=== PATIENT | female | born 1945 | race Caucasian/White ===

== ENCOUNTER 2021-07-02 19:26 | Inpatient (IN) | payer OTHER, SELFPAY ==
[~2021-07-02] VITALS: Ht 167.6 cm; Wt 76.7 kg
[2021-07-02 19:30] VITALS: BP_SYST 121
--- NOTE | 2021-07-02 19:54 | NUR ---
Placed in room 8 . Placed on cardiac rehabilitation program director, blood pressure machine and pulse oximeter. To gown for exam. Side rails up. Report given to HOANG SANCHEZ.
--- NOTE | 2021-07-02 19:55 | NUR ---
Came in ER per lizbeth brought by ALS paramedics from home this 75 year old female, AAOX4, with O2 at 15L/MIN via non rebreather mask, mild labored breathing, mild tachypneic noted, O2 sat-86-87%, with IV cannula g18 at left wrist on saline lock noted. With chief complaints of SOB and generalized weakness. Known with HTN, Asthma, Covid positive tested 06/27/2021, Hypothyroidism. Vital signs taken and recorded
--- NOTE | 2021-07-02 20:35 | NUR ---
Seen and examined by Dr. Melendrez, ER Attending
--- NOTE | 2021-07-02 20:40 | NUR ---
communications technologist at bedside and blood drawn. Covid charles test done, sent to lab
--- NOTE | 2021-07-02 21:01 | NUR ---
Chest Xray done at bedside
[2021-07-02 21:03] LABS: BASOPHILS % (AUTO) 0.1 % (0.0-2.0); HEMOGLOBIN 11.9 g/dL (12.0-16.0); LYMPHOCYTES # (AUTO) 0.7 K/uL (1.0-5.5); LYMPHOCYTES % (AUTO) 5.4 % (20.5-51.5); MEAN CORPUSCULAR HEMOGLOBIN 28 pg (27-31); MEAN CORPUSCULAR HGB CONC 33 % (32-36); MEAN CORPUSCULAR VOLUME 84 fL (79.0-98.0); MONOCYTES # (AUTO) 0.4 K/uL (0.0-1.0); MONOCYTES % (AUTO) 3.5 % (1.7-9.3); NEUTROPHILS # (AUTO) 11.4 K/uL (1.8-7.7); PLATELET COUNT (AUTO) 211 K/uL (130-430); RED BLOOD CELL COUNT(AUTO) 4.31 MIL/uL (4.2-6.2); RED CELL DISTRIBUTION WIDTH 15.5 % (9.0-15.0); WHITE BLOOD COUNT (AUTO) 12.6 K/uL (4.8-10.8)
--- NOTE | 2021-07-02 21:28 | NUR ---
Patient's son contacted to get the information of medcation and code status,he will call back.
[2021-07-02 21:31] LABS: ANION GAP 7 (5-15); CALCIUM 8.4 mg/dL (8.4-11.0); CHLORIDE 104 mmol/L (98-107); GLUCOSE 152 mg/dL (70-99); POTASSIUM 3.7 mmol/L (3.5-5.1); SODIUM SERUM 139 mmol/L (136-145); UREA NITROGEN, BLOOD 47 mg/dL (8-21)
[2021-07-02 21:37] LABS: ALANINE AMINOTRANSFERASE 26 U/L (12-78); ALBUMIN 2.8 g/dL (3.4-4.8); ASPARTATE AMINOTRANSFERASE 42 U/L (10-37); LACTATE DEHYDROGENASE 514 U/L (81-234); TOTAL BILIRUBIN 0.2 mg/dL (0.0-1.0)
--- NOTE | 2021-07-02 21:45 | NUR ---
Patient's daughter named Dr. Garcia called, medication list given and she wants a FULL CODE status for her mother.
--- NOTE | 2021-07-02 21:45 | NUR ---
Patient's code status is FULL CODE, paperwork completed and placed in chart.
[2021-07-02 21:53] LABS: INR 0.9 (0.8-1.2); PROTHROMBIN TIME 9.6 SECS (9.5-12.5)
[2021-07-02 21:54] LABS: BILIRUBIN,URINE NEGATIVE (NEGATIVE); BLOOD, URINE NEGATIVE (NEGATIVE); CLARITY/URINE SL CLOUDY (CLEAR); COLOR,URINE YELLOW (YELLOW); GLUCOSE,URINE NEGATIVE (NEGATIVE); KETONES,URINE NEGATIVE (NEGATIVE); NITRITE, URINE NEGATIVE (NEGATIVE); PH,URINE 5.5 (5.0-8.0); UROBILINOGEN,URINE 0.2 (0.2-1.0)
[2021-07-02] MEDS ORDERED: ASPI-858 PO (21:59)
[2021-07-02] MEDS ORDERED: HYDR-4038 PO (21:59)
[2021-07-02] MEDS ORDERED: PRO40 PO (21:59)
[2021-07-02] MEDS ORDERED: LEVO100T PO (21:59)
[2021-07-02] MEDS ORDERED: CELE200C PO (21:59)
[2021-07-02] MEDS ORDERED: SIMV40TA2 PO (21:59)
[2021-07-02] MEDS ORDERED: ESCI20TA PO (21:59)
[2021-07-02] MEDS ORDERED: SUCR1TAB78 PO (21:59)
[2021-07-02] MEDS ORDERED: BUDE6HFA INH (21:59)
[2021-07-02] MEDS ORDERED: TEMA30CA5 PO (21:59)
[2021-07-02] MEDS ORDERED: LOSA100T3 PO (21:59)
[2021-07-02] MEDS ORDERED: DILT240C91 PO (21:59)
[2021-07-02] MEDS ORDERED: HYDR25TA4 PO (21:59)
[2021-07-02] MEDS ORDERED: POTA10TA PO (21:59)
[2021-07-02] MEDS ORDERED: MONT10TA33 PO (21:59)
--- NOTE | 2021-07-02 22:00 | NUR ---
Medication reconciliation completed with information provided by comfort Baptiste. Any prior medication reconciliation on file was reviewed and corrected.
[2021-07-02 22:33] LABS: C-REACTIVE PROTEIN QUANT 11.5 mg/dL (0-0.5)
[2021-07-02 22:59] LABS: LEUKOCYTE ESTERASE ,URINE 1+ (NEGATIVE); PROTEIN URINE TRACE (NEGATIVE)
[2021-07-02 23:08] LABS: BACTERIA,URINE MANY /HPF (None Seen); MUCUS,URINE 2+ /LPF (None Seen); RBC,URINE 0-3 /HPF (0-3)
--- NOTE | 2021-07-02 23:17 | NUR ---
Patient will be admitted to care of Dr. Stover as a case of PNEUMONIA, COVID POSITIVE.. Admitted to ICU unit. Will go to room pending. Belongings list completed. Complete and up to date summary report printed. SBAR report to be given at bedside with opportunity for questions.
[2021-07-02] MEDS ORDERED: DEXAMETHASONE SOD PHOSPHATE 4 MG/ML VIAL IVP ONE (23:30)
[2021-07-02] MEDS ORDERED: cefTRIAXone 2 GM VIAL ONE (23:35)
--- NOTE | 2021-07-02 23:37 | NUR ---
Medications given as ordered, health teaching provided and verbalized understanding.
--- NOTE | 2021-07-02 23:40 | NUR ---
MRSA Nares swab done and sent to lab. Apple sauce offered and able to ate 3tbsp, tolerated well
[2021-07-03] VITALS (23 sets, daily range): BP systolic 127–176
--- NOTE | 2021-07-03 00:17 | NUR ---
Voided freely at bedpan, 200ml clear urine, gus-anal care done. Turn to left side lying position.
[2021-07-03] MEDS ORDERED: LORazepam 2 MG/ML VIAL IVP PRN (00:30)
[2021-07-03] MEDS ORDERED: ONDANSETRON HCL 4 MG/2 ML VIAL IVP PRN (00:30)
[2021-07-03] MEDS ORDERED: AZITHROMYCIN 500 MG/VIAL (ZITHROMAX) IV ONE (00:56)
[2021-07-03] MEDS: AZITHROMYCIN 500 MG in NS 250 ML IV SCH (01:16)
--- NOTE | 2021-07-03 01:16 | NUR ---
Fully awake and alert, not in distress noted, medication given as ordered
[2021-07-03] MEDS ORDERED: IPRATROPIUM BROM 0.5 MG/2.5 ML VIAL.NEB (ATROVENT) INH SCH (03:00)
[2021-07-03] MEDS ORDERED: ALBUTEROL SULFATE 0.083% 2.5 MG/3 ML VIAL.NEB INH SCH (03:00)
--- NOTE | 2021-07-03 03:09 | NUR ---
Transfer to ICU 7 via ACLS protocol. Licensed nurse present. IV present no signs or symptoms of infiltration.Endorsed to DANIEL Cameron,Report given
--- NOTE | 2021-07-03 03:20 | NUR ---
Pt transferred to ICU bed 7 via gurney following ACLS protocol. Pt alert and oriented x 3, able to follow commands and make needs known. Pt on 15 L via non rebreather, oxygen saturations in low 80's-70's and tachypneic. Al belongings with pt.
--- NOTE | 2021-07-03 03:48 | NUR ---
PAGED FOR ORDERS SPOKE TO: AUTOMATED EXCHANGE
--- NOTE | 2021-07-03 03:53 | NUR ---
Informed Dr. Santos about pt being tachypneic and oxygen saturations maintaining in 70's and 60's. Received new orders. Will follow through with the orders.
--- NOTE | 2021-07-03 04:05 | NUR ---
Pt placed on 50 L high low NC at 100%, pt's oxygen saturations maintaining above 90%. Pt's RR improved at 19.
--- NOTE | 2021-07-03 04:45 | NUR ---
FERNANDO CATH: # 16 FR Fernando catheter with 10 cc bulb inserted with use of sterile technique. Bulb inflated with 10 cc sterile water. Immediate return of urine noted. Bedside drainage bag placed below level of bladder. Pt tolerated procedure well.
--- NOTE | 2021-07-03 05:27 | NUR ---
PAGED FOR CONSULT DR. ROSS ORDERING PHYSICIAN: REASON FOR CONSULT: PNEUMONIA,COVID DIALED: [phone] SPOKE TO: VENTURA
--- NOTE | 2021-07-03 05:54 | NUR ---
Called scot Lauren to let him know pt is in ICU, updated on pt status and answered all questions.
[2021-07-03] MEDS: LEVOTHYROXINE SODIUM 0.1 MG TABLET PO SCH (06:00)
[2021-07-03] MEDS: DEXAMETHASONE SOD PHOSPHATE 10 MG/ML VIAL IVP SCH (06:00)
[2021-07-03] MEDS: SUCRALFATE 1 GM TABLET PO SCH ×2 (06:00→17:02)
--- NOTE | 2021-07-03 06:26 | NUR ---
God daughter Altagracia called for updates, updates provided and answered all questions.
[2021-07-03 06:41] LABS: BASOPHILS % (AUTO) 0.1 % (0.0-2.0); HEMATOCRIT 33.9 % (36-48); HEMOGLOBIN 11.4 g/dL (12.0-16.0); LYMPHOCYTES # (AUTO) 0.5 K/uL (1.0-5.5); LYMPHOCYTES % (AUTO) 3.8 % (20.5-51.5); MEAN CORPUSCULAR HEMOGLOBIN 28 pg (27-31); MEAN CORPUSCULAR HGB CONC 34 % (32-36); MEAN CORPUSCULAR VOLUME 83 fL (79.0-98.0); MONOCYTES # (AUTO) 0.3 K/uL (0.0-1.0); NEUTROPHILS # (AUTO) 11.9 K/uL (1.8-7.7); NEUTROPHILS % (AUTO) 94.1 % (40.0-70.0); PLATELET COUNT (AUTO) 206 K/uL (130-430); RED BLOOD CELL COUNT(AUTO) 4.09 MIL/uL (4.2-6.2); RED CELL DISTRIBUTION WIDTH 15.4 % (9.0-15.0); WHITE BLOOD COUNT (AUTO) 12.6 K/uL (4.8-10.8)
--- NOTE | 2021-07-03 06:50 | NUR ---
Nutrition Update Landry Scale 15 noted. Pt admitted for COVID, Pneumonia Diet: Cardiac BMI: 27.4 kg/m2 RD to follow per nutrition care standards.
--- NOTE | 2021-07-03 07:00 | NUR ---
Recv report fr Nisha fuller, patient came in for sob and patient tested positive for covid 19, patient also had covid vaccine backk in January. patient is currently on hiflow 50l @ 100%, O2 sat is 95% , patient is aao x 4, telemetry shows sr, i will continue nursing care and interventions.
--- NOTE | 2021-07-03 07:15 | NUR ---
Endorsed SBAR report to oncoming RN for continuity of care.
[2021-07-03 07:18] LABS: ALANINE AMINOTRANSFERASE 26 U/L (12-78); ALBUMIN 2.4 g/dL (3.4-4.8); ANION GAP 5 (5-15); ASPARTATE AMINOTRANSFERASE 47 U/L (10-37); CALCIUM 8.1 mg/dL (8.4-11.0); CHLORIDE 105 mmol/L (98-107); CREATININE 0.95 mg/dL (0.55-1.30); GLUCOSE 157 mg/dL (70-99); PHOSPHORUS 2.5 mg/dL (2.7-4.5); POTASSIUM 3.8 mmol/L (3.5-5.1); SODIUM SERUM 137 mmol/L (136-145); TOTAL BILIRUBIN 0.2 mg/dL (0.0-1.0); UREA NITROGEN, BLOOD 33 mg/dL (8-21)
[2021-07-03] MEDS: ALBUTEROL MDI INHALATION 8 GM INH INH SCH ×4 (07:55→19:40)
[2021-07-03] MEDS ORDERED: ESCITALOPRAM OXALATE 10 MG TABLET PO SCH (09:00)
[2021-07-03] MEDS ORDERED: PANTOPRAZOLE SODIUM 40 MG TAB PO SCH (09:00)
[2021-07-03] MEDS ORDERED: BUDESONIDE/FORMOTEROL 160-4.5 mCg, 6 GM INHALER INH SCH (09:00)
[2021-07-03] MEDS: PANTOPRAZOLE SODIUM 40 MG/VIAL (PROTONIX) IVP SCH (09:38)
[2021-07-03] MEDS: HYDROCHLOROTHIAZIDE 25 MG TABLET (HCTZ) PO SCH ×2 (09:39→20:24)
[2021-07-03] MEDS: POTASSIUM CHLORIDE 10 MEQ TAB.PRT.SR PO SCH ×2 (09:39→20:24)
[2021-07-03] MEDS: CITALOPRAM HYDROBROMIDE 20 MG TABLET PO SCH (09:39)
[2021-07-03] MEDS: ASCORBIC ACID 500 MG TABLET PO SCH ×2 (09:39→20:24)
[2021-07-03] MEDS: SIMVASTATIN 40 MG TABLET PO SCH (09:39)
[2021-07-03] MEDS: CHOLECALCIFEROL (VITAMIN D3) 5,000 UNIT TABLET PO SCH (09:40)
[2021-07-03] MEDS: ENOXAPARIN SODIUM 40 MG/0.4 ML SYRINGE SUBCUT SCH (09:43)
[2021-07-03] MEDS: DILTIAZEM HCL 240 MG CAP.SR.24H PO SCH (09:44)
[2021-07-03] MEDS: ASPIRIN 325 MG TABLET PO SCH (09:44)
[2021-07-03] MEDS: LOSARTAN POTASSIUM 50 MG TABLET (COZAAR) PO SCH (09:45)
[2021-07-03] MEDS: CELECOXIB 200 MG CAPSULE PO SCH ×2 (09:48→20:24)
[2021-07-03] MEDS: hydrALAZINE HCL 25 MG TABLET PO SCH ×2 (09:51→20:25)
--- NOTE | 2021-07-03 10:00 | NUR ---
Patient complaints of a headache, per records patient is alllerigc to Tylenol, discussed with dr bowser who is at the bedside, we re verified with patient about tylenol, she said its ok for her to take the tylenol.
--- NOTE | 2021-07-03 12:00 | NUR ---
Patient is eating lunch, given her the tylnold 650 mg, will closely monitor patient for any allergic reaction.
[2021-07-03] MEDS: ACETAMINOPHEN 325 MG TABLET PO PRN (12:57)
--- NOTE | 2021-07-03 14:00 | NUR ---
Patient is sleeping comfortably after tylenol, o2 sat is at 96%, vitals sign stable i will continue to monitor the patient.
[2021-07-03] MEDS: MONTELUKAST 10 MG TABLET PO SCH (17:02)
--- NOTE | 2021-07-03 19:30 | NUR ---
Received SBAR report from off coming RN for continuity of care. Pt laying in bed awake and alert. Pt on 50L high flow NC at 100%with non rebreather.
[2021-07-03] MEDS: TEMAZEPAM 15 MG CAPSULE PO SCH (20:24)
--- NOTE | 2021-07-03 20:30 | NUR ---
Pt laying in bed, a/o x 3. Pt c/o 06/26 headache, will administer PRN pain medication per JAN. Pt on 50 L high flow NC at 100% with non rebreather. Pt becomes SOB with exertion. Repositioned pt and assisted her to turn on her side, pt stated difficulty with proning d/t becoming SOB with exertion and desaturating. Escoto catheter in place and draining to gravity, yellow urine output noted. Call light within reach, bed locked and in lowest position, safety precautions in place.
--- NOTE | 2021-07-03 21:40 | NUR ---
Pt's oxygen saturations dropping into the 60's and 70's, sustaining in the 70s. Pt's work of breathing increasing RR in 30s. Pt becoming lethargic.
--- NOTE | 2021-07-03 21:55 | NUR ---
Informed Dr. Santos about pt's oxygen saturations dropping to the 70's and 60's and sustaining as well as an increase in work of breathing. Received new orders, will follow through.
--- NOTE | 2021-07-03 22:30 | NUR ---
Pt placed on BiPAP, pt tolerating well. Oxygen saturations maintained above 90%. Work of breathing improving.
[2021-07-03] MEDS: cefTRIAXone 1 GM IVPB PREMIX 50 ML IV SCH (23:59)
[2021-07-04] VITALS (23 sets, daily range): BP systolic 120–161
[2021-07-04] MEDS: ALBUTEROL MDI INHALATION 8 GM INH INH SCH ×4 (00:52→18:00)
[2021-07-04] MEDS: AZITHROMYCIN 500 MG in NS 250 ML IV SCH (01:54)
[2021-07-04] MEDS: DEXAMETHASONE SOD PHOSPHATE 10 MG/ML VIAL IVP SCH (05:37)
[2021-07-04] MEDS: SUCRALFATE 1 GM TABLET PO SCH ×2 (05:37→17:24)
[2021-07-04] MEDS: LEVOTHYROXINE SODIUM 0.1 MG TABLET PO SCH (05:37)
[2021-07-04 06:58] LABS: BASOPHILS % (AUTO) 0.1 % (0.0-2.0); HEMATOCRIT 35.1 % (36-48); HEMOGLOBIN 11.9 g/dL (12.0-16.0); LYMPHOCYTES # (AUTO) 0.9 K/uL (1.0-5.5); LYMPHOCYTES % (AUTO) 10.3 % (20.5-51.5); MEAN CORPUSCULAR HEMOGLOBIN 28 pg (27-31); MEAN CORPUSCULAR HGB CONC 34 % (32-36); MEAN CORPUSCULAR VOLUME 83 fL (79.0-98.0); MONOCYTES # (AUTO) 0.5 K/uL (0.0-1.0); MONOCYTES % (AUTO) 5.5 % (1.7-9.3); NEUTROPHILS # (AUTO) 7.3 K/uL (1.8-7.7); NEUTROPHILS % (AUTO) 84.1 % (40.0-70.0); PLATELET COUNT (AUTO) 217 K/uL (130-430); RED BLOOD CELL COUNT(AUTO) 4.24 MIL/uL (4.2-6.2); RED CELL DISTRIBUTION WIDTH 15.4 % (9.0-15.0); WHITE BLOOD COUNT (AUTO) 8.7 K/uL (4.8-10.8)
--- NOTE | 2021-07-04 07:00 | NUR ---
Recv report fr Cameron rn, patient had desaturated last night about 2200. patient is placed on bipap 18/8, rate 18, fo2 100%, patient is comfortable current o2 sat is between 91% to 93%, telemetry shows sinus rhythm, npo for now, f/c to gravity skin warm to touch, i will continue nursing care and interventions.
--- NOTE | 2021-07-04 07:30 | NUR ---
Endorsed SBAR report to oncoming RN for continuity of care. Pt laying in bed with eyes closed. Pt on BiPAP with oxygen saturations maintained above 90%.
[2021-07-04 07:31] LABS: INR 0.9 (0.8-1.2); PROTHROMBIN TIME 9.5 SECS (9.5-12.5)
[2021-07-04 07:41] LABS: ANION GAP 11 (5-15); CALCIUM 8.2 mg/dL (8.4-11.0); CHLORIDE 104 mmol/L (98-107); CREATININE 1.04 mg/dL (0.55-1.30); GLUCOSE 114 mg/dL (70-99); SODIUM SERUM 142 mmol/L (136-145); UREA NITROGEN, BLOOD 33 mg/dL (8-21)
[2021-07-04 07:45] LABS: ALANINE AMINOTRANSFERASE 27 U/L (12-78); ALBUMIN 2.6 g/dL (3.4-4.8); ASPARTATE AMINOTRANSFERASE 41 U/L (10-37); C-REACTIVE PROTEIN QUANT 6.4 mg/dL (0-0.5); LACTATE DEHYDROGENASE 617 U/L (81-234); TOTAL BILIRUBIN 0.2 mg/dL (0.0-1.0)
--- NOTE | 2021-07-04 08:30 | NUR ---
Dr perea came , he said he knows the patient for a long time, but he is not consulted. he went to say hi to the patient, patient is aware.
[2021-07-04 08:40] LABS: ERYTHROCYTE SEDIMENTATION RATE 41 MM/HR (0-20)
[2021-07-04] MEDS: CELECOXIB 200 MG CAPSULE PO SCH ×2 (09:00→21:58)
[2021-07-04] MEDS: POTASSIUM CHLORIDE 10 MEQ TAB.PRT.SR PO SCH ×2 (09:00→21:58)
[2021-07-04] MEDS: CITALOPRAM HYDROBROMIDE 20 MG TABLET PO SCH (09:00)
--- NOTE | 2021-07-04 09:00 | NUR ---
Spoke with savannah Santos an order for PICC line insertion, patient is able to sign the consent.
--- NOTE | 2021-07-04 09:10 | NUR ---
Page out to Dr. Stover, waiting for call back.
[2021-07-04] MEDS: PANTOPRAZOLE SODIUM 40 MG/VIAL (PROTONIX) IVP SCH (11:01)
[2021-07-04] MEDS: ENOXAPARIN SODIUM 40 MG/0.4 ML SYRINGE SUBCUT SCH (11:02)
--- NOTE | 2021-07-04 13:29 | NUR ---
rt notes 1329 Titrated FIO2 to 90%, saturation 98%. will continue to monitor pt.
[2021-07-04] MEDS: DILTIAZEM HCL 240 MG CAP.SR.24H PO SCH (15:29)
[2021-07-04] MEDS: HYDROCHLOROTHIAZIDE 25 MG TABLET (HCTZ) PO SCH ×2 (15:30→21:58)
[2021-07-04] MEDS: ACETAMINOPHEN 325 MG TABLET PO PRN ×2 (15:30→21:35)
[2021-07-04] MEDS: ASPIRIN 325 MG TABLET PO SCH (15:34)
[2021-07-04] MEDS: LOSARTAN POTASSIUM 50 MG TABLET (COZAAR) PO SCH (15:34)
[2021-07-04] MEDS: SIMVASTATIN 40 MG TABLET PO SCH (15:35)
[2021-07-04] MEDS: hydrALAZINE HCL 25 MG TABLET PO SCH ×2 (15:36→21:57)
[2021-07-04] MEDS: CHOLECALCIFEROL (VITAMIN D3) 5,000 UNIT TABLET PO SCH (15:36)
[2021-07-04] MEDS: ASCORBIC ACID 500 MG TABLET PO SCH ×2 (15:38→21:59)
--- NOTE | 2021-07-04 16:30 | NUR ---
Dr. Stover called jory updated him about the patient, he spoke with the family, the family wants to keep him one more day for more families, dr stover said to keep bp up until tomorrow, so patient is full code.
[2021-07-04] MEDS: MONTELUKAST 10 MG TABLET PO SCH (17:26)
--- NOTE | 2021-07-04 19:32 | NUR ---
Received SBAR report from off coming RN for continuity of care. Pt laying in bed with eyes closed, pt on BiPAP at 80% with oxygen saturations maintained above 90%. Call light within reach.
--- NOTE | 2021-07-04 21:00 | NUR ---
Pt laying in bed, a/o x 3. Pt c/o 06/26 headache, will administer PRN pain medication per JAN. Pt on BiPAP at 80%, oxygen saturations maintained above 90%. Pt breathing even and unlabored. Repositioned pt and assisted her to turn on her side Escoto catheter in place and draining to gravity, dark yellow urine output noted. Call light within reach, bed locked and in lowest position, safety precautions in place
[2021-07-04] MEDS: TEMAZEPAM 15 MG CAPSULE PO SCH (21:59)
[2021-07-04] MEDS: cefTRIAXone 1 GM IVPB PREMIX 50 ML IV SCH (23:30)
[2021-07-05] VITALS (23 sets, daily range): BP systolic 93–161
[2021-07-05] MEDS: ALBUTEROL MDI INHALATION 8 GM INH INH SCH ×3 (01:46→20:59)
[2021-07-05] MEDS: AZITHROMYCIN 500 MG in NS 250 ML IV SCH (01:46)
--- NOTE | 2021-07-05 04:40 | NUR ---
Daughter Jesica called for updates, updates provided and answered all questions.
[2021-07-05] MEDS: DEXAMETHASONE SOD PHOSPHATE 10 MG/ML VIAL IVP SCH (05:58)
[2021-07-05] MEDS: LEVOTHYROXINE SODIUM 0.1 MG TABLET PO SCH (05:59)
[2021-07-05] MEDS: SUCRALFATE 1 GM TABLET PO SCH ×2 (05:59→17:53)
[2021-07-05 06:40] LABS: ALANINE AMINOTRANSFERASE 23 U/L (12-78); ALBUMIN 2.3 g/dL (3.4-4.8); ANION GAP 9 (5-15); ASPARTATE AMINOTRANSFERASE 29 U/L (10-37); C-REACTIVE PROTEIN QUANT 2.1 mg/dL (0-0.5); CHLORIDE 106 mmol/L (98-107); CREATININE 1.05 mg/dL (0.55-1.30); GLUCOSE 116 mg/dL (70-99); POTASSIUM 4.1 mmol/L (3.5-5.1); SODIUM SERUM 141 mmol/L (136-145); TOTAL BILIRUBIN 0.3 mg/dL (0.0-1.0); UREA NITROGEN, BLOOD 39 mg/dL (8-21)
[2021-07-05 07:01] LABS: BASOPHILS % (AUTO) 0.1 % (0.0-2.0); HEMATOCRIT 33.7 % (36-48); HEMOGLOBIN 11.5 g/dL (12.0-16.0); LYMPHOCYTES # (AUTO) 0.8 K/uL (1.0-5.5); LYMPHOCYTES % (AUTO) 8.3 % (20.5-51.5); MEAN CORPUSCULAR HEMOGLOBIN 28 pg (27-31); MEAN CORPUSCULAR HGB CONC 34 % (32-36); MEAN CORPUSCULAR VOLUME 83 fL (79.0-98.0); MONOCYTES # (AUTO) 0.7 K/uL (0.0-1.0); MONOCYTES % (AUTO) 6.9 % (1.7-9.3); NEUTROPHILS # (AUTO) 8.6 K/uL (1.8-7.7); NEUTROPHILS % (AUTO) 84.7 % (40.0-70.0); PLATELET COUNT (AUTO) 231 K/uL (130-430); RED BLOOD CELL COUNT(AUTO) 4.05 MIL/uL (4.2-6.2); RED CELL DISTRIBUTION WIDTH 15.2 % (9.0-15.0); WHITE BLOOD COUNT (AUTO) 10.1 K/uL (4.8-10.8)
--- NOTE | 2021-07-05 07:10 | NUR ---
Opening note: Received SBAR report from night nurse. Assumed all cares. Pt in bed with eyes closed. Pt on BiPAP, maintaining oxygen saturation above 90%.
--- NOTE | 2021-07-05 07:30 | NUR ---
Endorsed SBAR report to oncoming RN for continuity of care.
[2021-07-05 08:21] LABS: ERYTHROCYTE SEDIMENTATION RATE 24 MM/HR (0-20)
[2021-07-05] MEDS: CELECOXIB 200 MG CAPSULE PO SCH ×2 (08:24→21:20)
[2021-07-05] MEDS: SIMVASTATIN 40 MG TABLET PO SCH (08:26)
[2021-07-05] MEDS: POTASSIUM CHLORIDE 10 MEQ TAB.PRT.SR PO SCH ×2 (08:26→21:20)
[2021-07-05] MEDS: DILTIAZEM HCL 240 MG CAP.SR.24H PO SCH (08:26)
[2021-07-05] MEDS: HYDROCHLOROTHIAZIDE 25 MG TABLET (HCTZ) PO SCH ×2 (08:27→21:28)
[2021-07-05] MEDS: ASCORBIC ACID 500 MG TABLET PO SCH ×2 (08:27→21:20)
[2021-07-05] MEDS: CITALOPRAM HYDROBROMIDE 20 MG TABLET PO SCH (08:27)
[2021-07-05] MEDS: CHOLECALCIFEROL (VITAMIN D3) 5,000 UNIT TABLET PO SCH (08:28)
[2021-07-05] MEDS: PANTOPRAZOLE SODIUM 40 MG/VIAL (PROTONIX) IVP SCH (08:28)
[2021-07-05] MEDS: LOSARTAN POTASSIUM 50 MG TABLET (COZAAR) PO SCH (08:28)
--- NOTE | 2021-07-05 08:30 | NUR ---
RT placed pt on High flow O2 60LPM FiO2 80%. Pt drinking fluids and eating breakfast, maintaining oxygen saturation above 90%.
--- NOTE | 2021-07-05 08:34 | NUR ---
rt notes 0733 Pt tolerating bipap (18/8 r18 100% fio2) 0826 Pt placed on HFNC 60L/ 100% fio2, and try if pt tolerates also for breakfast. Pt saturating 92%, will continue to monitor pt. Re-educ pt to keep breathing through nose. DANIEL escudero.
[2021-07-05] MEDS: ASPIRIN 325 MG TABLET PO SCH (08:36)
[2021-07-05] MEDS: ENOXAPARIN SODIUM 40 MG/0.4 ML SYRINGE SUBCUT SCH (08:36)
[2021-07-05] MEDS: hydrALAZINE HCL 25 MG TABLET PO SCH ×2 (08:37→21:28)
--- NOTE | 2021-07-05 09:44 | NUR ---
rt notes 0944 Pt still on HFNC 60L/ 80% fio2 + 15L NRB. Pt saturating 94%. will continue to monitor pt.
--- NOTE | 2021-07-05 12:30 | NUR ---
Put pt on BiPAP due to low saturation on High flow. Oxygen saturation now maintained above 90%.
--- NOTE | 2021-07-05 12:48 | NUR ---
RT NOTES 1248 Pt switched back to BIPAP (same settings) by DANIEL Wilson, pt desaturated on HFNC w/ NRB. will continue to monitor pt.
--- NOTE | 2021-07-05 14:30 | NUR ---
RT replaced BiPAP with high flow oxygen at 60LPM FiO2 80%. Pt maintaining saturation above 90%. Pt eating lunch.
--- NOTE | 2021-07-05 17:05 | NUR ---
Dietitian Recommendations * Recommend cardiac, mechanical soft, soft, finely chopped diet w/ Ensure Enlive TID (ONS provides 1050 kcal/day, 60 gm protein/day) * Encourage increase PO intakes LP, RD Please refer to Nutrition Assessment for details. Addendum: 07/05/21 at [address] Amended: Links added.
[2021-07-05] MEDS: MONTELUKAST 10 MG TABLET PO SCH (17:53)
[2021-07-05] MEDS: ACETAMINOPHEN 325 MG TABLET PO PRN (18:13)
--- NOTE | 2021-07-05 19:19 | NUR ---
SBAR report given and all cares endorsed to oncoming nurse.
--- NOTE | 2021-07-05 20:10 | NUR ---
Initial Note Received SBAR report from dayshift RN. Received resting in bed with eyes closed, easily aroused. No c/o pain or discomfort. On highflow O2 50 % 100% FiO2. Afebrile. Escoto catheter draining yellow urine. Repositioned in bed. Will continue to monitor.
[2021-07-05] MEDS: TEMAZEPAM 15 MG CAPSULE PO SCH (21:21)
--- NOTE | 2021-07-05 21:38 | NUR ---
Due PO medications administered. Tolerated well.
--- NOTE | 2021-07-05 22:23 | NUR ---
O2 sat 77% on High Flow O2. No respiratory distress noted, easily aroused. RT placed on BIPAP. O2 sat 93-94%.
[2021-07-06] VITALS (25 sets, daily range): BP systolic 109–162
[2021-07-06] MEDS: cefTRIAXone 1 GM IVPB PREMIX 50 ML IV SCH ×2 (00:04→23:00)
[2021-07-06] MEDS: ALBUTEROL MDI INHALATION 8 GM INH INH SCH ×4 (01:40→20:06)
[2021-07-06] MEDS ORDERED: DOXYCYCLINE HYCLATE 100 MG VIAL IV ONE (03:53)
[2021-07-06] MEDS: DOXYCYCLINE HYCLATE 100 MG in D5W 100 ML IV SCH ×2 (04:28→21:30)
[2021-07-06] MEDS: DEXAMETHASONE SOD PHOSPHATE 10 MG/ML VIAL IVP SCH (05:04)
[2021-07-06] MEDS: LEVOTHYROXINE SODIUM 0.1 MG TABLET PO SCH (05:28)
[2021-07-06] MEDS: ACETAMINOPHEN 325 MG TABLET PO PRN ×4 (05:28→22:45)
[2021-07-06] MEDS ORDERED: ACETAMINOPHEN 325 MG TABLET ONE (05:30)
--- NOTE | 2021-07-06 05:38 | NUR ---
C/o back pain rated 3/10. Tylenol given as ordered.
[2021-07-06] MEDS: SUCRALFATE 1 GM TABLET PO SCH ×2 (06:13→17:30)
[2021-07-06 06:41] LABS: BASOPHILS % (AUTO) 0.1 % (0.0-2.0); HEMATOCRIT 36.1 % (36-48); HEMOGLOBIN 12.1 g/dL (12.0-16.0); LYMPHOCYTES # (AUTO) 0.9 K/uL (1.0-5.5); LYMPHOCYTES % (AUTO) 6.7 % (20.5-51.5); MEAN CORPUSCULAR HEMOGLOBIN 27 pg (27-31); MEAN CORPUSCULAR HGB CONC 33 % (32-36); MEAN CORPUSCULAR VOLUME 82 fL (79.0-98.0); MONOCYTES # (AUTO) 0.9 K/uL (0.0-1.0); MONOCYTES % (AUTO) 6.8 % (1.7-9.3); NEUTROPHILS % (AUTO) 86.4 % (40.0-70.0); PLATELET COUNT (AUTO) 218 K/uL (130-430); WHITE BLOOD COUNT (AUTO) 13.9 K/uL (4.8-10.8)
[2021-07-06 06:47] LABS: ANION GAP 8 (5-15); CALCIUM 8.3 mg/dL (8.4-11.0); CHLORIDE 101 mmol/L (98-107); CREATININE 0.86 mg/dL (0.55-1.30); GLUCOSE 129 mg/dL (70-99); POTASSIUM 4.3 mmol/L (3.5-5.1); SODIUM SERUM 137 mmol/L (136-145); UREA NITROGEN, BLOOD 32 mg/dL (8-21)
[2021-07-06 06:56] LABS: ALANINE AMINOTRANSFERASE 23 U/L (12-78); ALBUMIN 2.6 g/dL (3.4-4.8); ASPARTATE AMINOTRANSFERASE 26 U/L (10-37); LACTATE DEHYDROGENASE 565 U/L (81-234); TOTAL BILIRUBIN 0.3 mg/dL (0.0-1.0)
--- NOTE | 2021-07-06 06:59 | NUR ---
Partial bed bath given. Turned and repositioned. Tolerated well.
--- NOTE | 2021-07-06 07:15 | NUR ---
Received SBAR report from night nurse. All cares assumed. Pt resting in bed with eyes closed. BiPAP 18/8, 20, 50%.
--- NOTE | 2021-07-06 07:21 | NUR ---
Closing note Resting quietly, all needs attended to. SBAR report given to oncoming shift RN.
[2021-07-06] MEDS: PANTOPRAZOLE SODIUM 40 MG/VIAL (PROTONIX) IVP SCH (08:09)
[2021-07-06] MEDS: HYDROCHLOROTHIAZIDE 25 MG TABLET (HCTZ) PO SCH ×2 (08:09→21:27)
[2021-07-06] MEDS: DILTIAZEM HCL 240 MG CAP.SR.24H PO SCH (08:10)
[2021-07-06] MEDS: hydrALAZINE HCL 25 MG TABLET PO SCH ×2 (08:10→21:26)
[2021-07-06] MEDS: SIMVASTATIN 40 MG TABLET PO SCH (08:11)
[2021-07-06] MEDS: ASPIRIN 325 MG TABLET PO SCH (08:11)
[2021-07-06] MEDS: POTASSIUM CHLORIDE 10 MEQ TAB.PRT.SR PO SCH ×2 (08:11→21:33)
[2021-07-06] MEDS: CITALOPRAM HYDROBROMIDE 20 MG TABLET PO SCH (08:11)
[2021-07-06] MEDS: ASCORBIC ACID 500 MG TABLET PO SCH ×2 (08:15→21:27)
[2021-07-06] MEDS: LOSARTAN POTASSIUM 50 MG TABLET (COZAAR) PO SCH (08:15)
[2021-07-06] MEDS: CHOLECALCIFEROL (VITAMIN D3) 5,000 UNIT TABLET PO SCH (08:15)
[2021-07-06] MEDS: ENOXAPARIN SODIUM 40 MG/0.4 ML SYRINGE SUBCUT SCH (08:18)
[2021-07-06] MEDS: CELECOXIB 200 MG CAPSULE PO SCH ×2 (08:19→21:27)
[2021-07-06 08:51] LABS: ERYTHROCYTE SEDIMENTATION RATE 13 MM/HR (0-20)
--- NOTE | 2021-07-06 10:12 | NUR ---
RT NOTES 0810 Currently pt on BIPAP 0835 switched pt on Vapotherm 40L/ 100% FIO2 for breakfast. pt saturation 96%, pt tolerating well. will continue to monitor pt. DANIEL escudero.
--- NOTE | 2021-07-06 12:50 | NUR ---
RT NOTES 1250 Pt currently on Vapotherm + 15L NRB, pt saturating 94%, will continue to monitor pt.
--- NOTE | 2021-07-06 15:00 | NUR ---
CHG bath given, bed linens changed. Pt assisted with turning, maintained saturations during bed change.
--- NOTE | 2021-07-06 15:40 | NUR ---
RT NOTES 1540 Titrated fio2 to 90%, saturation 96%. will continue to monitor pt. DANIEL Pantoja aware of changes.
--- NOTE | 2021-07-06 15:45 | NUR ---
RT titrated high flow oxygen from 100% to 90%. Saturation maintained above 90%. Will continue to monitor.
[2021-07-06] MEDS: MONTELUKAST 10 MG TABLET PO SCH (17:30)
--- NOTE | 2021-07-06 19:07 | NUR ---
SBAR report given to oncoming nurse. Pt resting in bed.
--- NOTE | 2021-07-06 21:00 | NUR ---
PATIENT ACCEPTED AND ASSESS DONE , PATIENT AWAKE AND RESPOND TO ALL COMMANDS ON HIFLOW WITH 40 LITER ,90% SAT 93% AND STABLE WILL CONSUMED PO MEDS WELL BT SELF AND MEAL , PATIENT , IS ABLE TO SOME THING BY SELF MERCED PAIN OR SOB , HAS AN FERNANDO AND DOING WELL WITH URINE OUT PUT, STABLE NOTICE THE LEFT SALINE LOCK, DRSG. NEED CHANGE HAD OLD DRY BLOOD ON SKIN , PATIENT HAS AN MIDLINE WILL REMOVED THE SALINE LOCKM ON THE LEFT HAND, STABLE
[2021-07-06] MEDS: TEMAZEPAM 15 MG CAPSULE PO SCH (21:29)
[2021-07-07] VITALS (24 sets, daily range): BP systolic 103–168
[2021-07-07] MEDS: ALBUTEROL MDI INHALATION 8 GM INH INH SCH ×4 (01:27→19:40)
[2021-07-07] MEDS: ACETAMINOPHEN 325 MG TABLET PO PRN ×2 (04:34→21:35)
[2021-07-07] MEDS: LEVOTHYROXINE SODIUM 0.1 MG TABLET PO SCH (05:52)
[2021-07-07] MEDS: DEXAMETHASONE SOD PHOSPHATE 10 MG/ML VIAL IVP SCH (05:52)
[2021-07-07] MEDS: SUCRALFATE 1 GM TABLET PO SCH ×2 (05:52→17:44)
[2021-07-07 07:09] LABS: HEMATOCRIT 38.2 % (36-48); HEMOGLOBIN 12.9 g/dL (12.0-16.0); LYMPHOCYTES # (AUTO) 0.9 K/uL (1.0-5.5); LYMPHOCYTES % (AUTO) 4.9 % (20.5-51.5); MEAN CORPUSCULAR HEMOGLOBIN 28 pg (27-31); MEAN CORPUSCULAR HGB CONC 34 % (32-36); MEAN CORPUSCULAR VOLUME 82 fL (79.0-98.0); MONOCYTES # (AUTO) 1.2 K/uL (0.0-1.0); MONOCYTES % (AUTO) 6.4 % (1.7-9.3); NEUTROPHILS # (AUTO) 16.7 K/uL (1.8-7.7); PLATELET COUNT (AUTO) 234 K/uL (130-430); RED BLOOD CELL COUNT(AUTO) 4.66 MIL/uL (4.2-6.2); RED CELL DISTRIBUTION WIDTH 15.3 % (9.0-15.0); WHITE BLOOD COUNT (AUTO) 18.8 K/uL (4.8-10.8)
[2021-07-07 07:14] LABS: ALANINE AMINOTRANSFERASE 23 U/L (12-78); ALBUMIN 2.7 g/dL (3.4-4.8); ANION GAP 7 (5-15); ASPARTATE AMINOTRANSFERASE 24 U/L (10-37); C-REACTIVE PROTEIN QUANT 0.3 mg/dL (0-0.5); CALCIUM 8.7 mg/dL (8.4-11.0); CHLORIDE 99 mmol/L (98-107); CREATININE 0.87 mg/dL (0.55-1.30); GLUCOSE 115 mg/dL (70-99); POTASSIUM 3.8 mmol/L (3.5-5.1); SODIUM SERUM 134 mmol/L (136-145); TOTAL BILIRUBIN 0.4 mg/dL (0.0-1.0); UREA NITROGEN, BLOOD 36 mg/dL (8-21)
--- NOTE | 2021-07-07 07:15 | NUR ---
received report from endorsing shift production associate RN, patient is lying in bed.on high flow 40L, 100%. Fio2 is between 89-91%, patient is educated to turn side to side.
--- NOTE | 2021-07-07 07:40 | NUR ---
bedfast tray was given, T=98.2, provided bedside care.
--- NOTE | 2021-07-07 08:00 | NUR ---
MD Santos is at bedside assessing the patient.
--- NOTE | 2021-07-07 08:05 | NUR ---
RT NOTES Dr Santos witnessed pt would desat without NRM. stated to make sure pt. always has mask on with HFNC. Rn Wilton made aware.
[2021-07-07] MEDS: DOXYCYCLINE HYCLATE 100 MG in D5W 100 ML IV SCH ×2 (09:09→21:30)
[2021-07-07] MEDS: CITALOPRAM HYDROBROMIDE 20 MG TABLET PO SCH (09:10)
[2021-07-07] MEDS: POTASSIUM CHLORIDE 10 MEQ TAB.PRT.SR PO SCH ×2 (09:10→21:31)
[2021-07-07] MEDS: ASCORBIC ACID 500 MG TABLET PO SCH ×2 (09:10→21:31)
[2021-07-07] MEDS: SIMVASTATIN 40 MG TABLET PO SCH (09:10)
[2021-07-07] MEDS: DILTIAZEM HCL 240 MG CAP.SR.24H PO SCH (09:11)
[2021-07-07] MEDS: ASPIRIN 325 MG TABLET PO SCH (09:11)
[2021-07-07] MEDS: LOSARTAN POTASSIUM 50 MG TABLET (COZAAR) PO SCH (09:12)
[2021-07-07] MEDS: hydrALAZINE HCL 25 MG TABLET PO SCH ×2 (09:12→21:34)
[2021-07-07] MEDS: CHOLECALCIFEROL (VITAMIN D3) 5,000 UNIT TABLET PO SCH (09:13)
[2021-07-07] MEDS: PANTOPRAZOLE SODIUM 40 MG/VIAL (PROTONIX) IVP SCH (09:14)
[2021-07-07] MEDS: CELECOXIB 200 MG CAPSULE PO SCH ×2 (09:19→21:35)
[2021-07-07] MEDS: HYDROCHLOROTHIAZIDE 25 MG TABLET (HCTZ) PO SCH ×2 (09:24→21:36)
[2021-07-07] MEDS: ENOXAPARIN SODIUM 40 MG/0.4 ML SYRINGE SUBCUT SCH (09:26)
[2021-07-07 09:27] LABS: NEUTROPHILS % (AUTO) 88.7 % (40.0-70.0)
[2021-07-07 09:32] LABS: ERYTHROCYTE SEDIMENTATION RATE 6 MM/HR (0-20)
--- NOTE | 2021-07-07 12:30 | NUR ---
LUNCH TRAY GIVEN TO PATIENT, PROVIDED ORAL AND BEDSIDE CARE.
--- NOTE | 2021-07-07 14:00 | NUR ---
PATIENT DAUGHTERS VISITED, PROVIDED PATIENT STATUS.
[2021-07-07] MEDS: MONTELUKAST 10 MG TABLET PO SCH (17:44)
--- NOTE | 2021-07-07 19:24 | NUR ---
ENDORSED PATIENT TO NET WASHER RN FOR CONTINUATION OF CARE.
--- NOTE | 2021-07-07 21:00 | NUR ---
PATIENT WAS ACCEPTED AND ASSESS DONE , PATIENT C/O OF BEING COLD HAS MANY BLANKET ON WITH TOWEL WRAP AROUND HER HEAD STAT SHE FEELS BETTER ASK IF HAD AN WINTER CAP WEAR ON HERE HEAD WILL HELP DENISESTABLE PAIN
[2021-07-07] MEDS: TEMAZEPAM 15 MG CAPSULE PO SCH (21:35)
[2021-07-08] VITALS (24 sets, daily range): BP systolic 106–157
--- NOTE | 2021-07-08 01:00 | NUR ---
PATIENT WAS AWAKE AND HAD REMOVED ALL OF THE LINEN OFF HER AND SOCK WELL ASK WHY AFTER BEING SO COLD STAT BY HER WAS UNABLE TO STAT WHY AND SEEMED CONFUSED AND DISORIENTATED LINEN WAS APPLIED BACK ON THE BED , RESTLESS AQND AGITATED ATIVAN 1 MG IV WAS GIVEN TO HELP CALM HER DOWN SHE WAS ALSO PLACE ON THE BIPAP MACHINE , RESTE WELL THRU OUT THE NITE , STABLE
[2021-07-08] MEDS: ALBUTEROL MDI INHALATION 8 GM INH INH SCH ×5 (01:20→23:51)
[2021-07-08] MEDS: cefTRIAXone 1 GM IVPB PREMIX 50 ML IV SCH ×2 (01:27→23:50)
--- NOTE | 2021-07-08 04:00 | NUR ---
PATIENT WANTED THE BIPAP OFF, PATIENT WOULD DO BETTER IF REMAIN ON THE BIPAP THIS WAS EXPLAIN TO THE PATIENT BUT DID NOT WANT TO STAY ON THE BIPAP RESP THERAPIST WAS CALLED AND HAD DECIED TO PLACE THE PATIENT BACK ON HIFLOW NC NON REBREATHER MASK AT 100% STABLE CONDITION PATIENT WAS ABLE TO SLEEP AND REST DURING THE NITE , STABLE
--- NOTE | 2021-07-08 05:00 | NUR ---
DR QUINTANA WAS HERE TO VISITED WITH THE PATIENT , CHECK ON THE MEDICATION LAST DOSE OF REMDESEVER 100 MG , PATIENT HAD COMPLETED THE SERIES OF MEDICATION, STABLE WILL CONTINUED WITH PLAN OF CARE , STABLE
[2021-07-08] MEDS: SUCRALFATE 1 GM TABLET PO SCH ×2 (05:48→18:53)
[2021-07-08] MEDS: LEVOTHYROXINE SODIUM 0.1 MG TABLET PO SCH (05:48)
[2021-07-08] MEDS: DEXAMETHASONE SOD PHOSPHATE 10 MG/ML VIAL IVP SCH (05:49)
[2021-07-08 06:49] LABS: BASOPHILS % (AUTO) 0.1 % (0.0-2.0); EOSINOPHILS % (AUTO) 0.1 % (0.0-4.0); HEMATOCRIT 35.3 % (36-48); LYMPHOCYTES # (AUTO) 1.2 K/uL (1.0-5.5); LYMPHOCYTES % (AUTO) 6.9 % (20.5-51.5); MEAN CORPUSCULAR HEMOGLOBIN 28 pg (27-31); MEAN CORPUSCULAR HGB CONC 34 % (32-36); MEAN CORPUSCULAR VOLUME 81 fL (79.0-98.0); MONOCYTES % (AUTO) 5.2 % (1.7-9.3); NEUTROPHILS % (AUTO) 87.7 % (40.0-70.0); PLATELET COUNT (AUTO) 178 K/uL (130-430); RED BLOOD CELL COUNT(AUTO) 4.36 MIL/uL (4.2-6.2); RED CELL DISTRIBUTION WIDTH 14.8 % (9.0-15.0); WHITE BLOOD COUNT (AUTO) 18.2 K/uL (4.8-10.8)
[2021-07-08 07:09] LABS: ANION GAP 8 (5-15); C-REACTIVE PROTEIN QUANT 0.6 mg/dL (0-0.5); CALCIUM 8.5 mg/dL (8.4-11.0); CHLORIDE 97 mmol/L (98-107); CREATININE 0.69 mg/dL (0.55-1.30); GLUCOSE 100 mg/dL (70-99); POTASSIUM 4.2 mmol/L (3.5-5.1); SODIUM SERUM 133 mmol/L (136-145); UREA NITROGEN, BLOOD 29 mg/dL (8-21)
[2021-07-08 08:30] LABS: ERYTHROCYTE SEDIMENTATION RATE 6 MM/HR (0-20)
[2021-07-08] MEDS: PANTOPRAZOLE SODIUM 40 MG/VIAL (PROTONIX) IVP SCH (08:59)
[2021-07-08] MEDS: hydrALAZINE HCL 25 MG TABLET PO SCH ×2 (09:02→20:25)
[2021-07-08] MEDS: DILTIAZEM HCL 240 MG CAP.SR.24H PO SCH (09:04)
[2021-07-08] MEDS: CHOLECALCIFEROL (VITAMIN D3) 5,000 UNIT TABLET PO SCH (09:05)
[2021-07-08] MEDS: CITALOPRAM HYDROBROMIDE 20 MG TABLET PO SCH (09:05)
[2021-07-08] MEDS: ASPIRIN 325 MG TABLET PO SCH (09:05)
[2021-07-08] MEDS: LOSARTAN POTASSIUM 50 MG TABLET (COZAAR) PO SCH (09:07)
[2021-07-08] MEDS: POTASSIUM CHLORIDE 10 MEQ TAB.PRT.SR PO SCH ×2 (09:08→20:24)
[2021-07-08] MEDS: ASCORBIC ACID 500 MG TABLET PO SCH ×2 (09:08→20:25)
[2021-07-08] MEDS: HYDROCHLOROTHIAZIDE 25 MG TABLET (HCTZ) PO SCH ×2 (09:08→20:25)
[2021-07-08] MEDS: SIMVASTATIN 40 MG TABLET PO SCH (09:10)
[2021-07-08] MEDS: ENOXAPARIN SODIUM 40 MG/0.4 ML SYRINGE SUBCUT SCH (09:12)
[2021-07-08] MEDS: CELECOXIB 200 MG CAPSULE PO SCH ×2 (09:18→20:25)
[2021-07-08] MEDS: DOXYCYCLINE HYCLATE 100 MG in D5W 100 ML IV SCH ×2 (09:20→20:24)
--- NOTE | 2021-07-08 15:35 | NUR ---
RT NOTES Pt saturation 79% while sleeping. Placed on 100% nrm with hfnc, pt was reeducated on deep breathing. Sat. improved to 97%.
--- NOTE | 2021-07-08 18:08 | NUR ---
Nutrition F/U RD reviewed pt's current EMR record including diet Hx, physician notes, nursing notes, pertinent labs/meds/procedures, care trends, and care activity. Admission Dx: COVID, pneumonia PMH: asthma, hypothyroidism, endometrial CA s/p hysterectomy in the past per physician notes Pt was also found w/ sepsis per physician notes SARS-CoV-2 Ag (Rapid) Positive 07/02 Current Diet Order/Nutrition Support: Cardiac, mechanical soft, soft, finely chopped diet w/ Ensure Enlive TID x2 days Subjective Info: RD bedside visit deferred d/t high RD load. Per EMR review, pt is on HFNC O2; last dose of remdesivir today; PO intake average of 26% x6 meals; no BM noted since 07/03; Landry scale: 15, no PIs noted. Current diet is appropriate, however, pt needs ample encouragement at meal times. Pertinent Medications: zinc sulfate, VIT C, VIT D3, protonix IV, lovenox, hydrodiuril, synthroid Pertinent Labs: BUN 29 H, BG 100 H, ALP 243 H, CRP 0.6 H, ALB 2.7 L, WBC 18.2 H Height (Feet) 5 feet Height (Inches) 6.00 inches Weight (Pounds) 169 pounds Weight (Calculated Kilograms) 76.201125 kilograms Patient Weight 76.657 kg Body Mass Index 27.27 kg/m2 %IBW 130 [place]/Adjusted Body Weight IBW: 130#/59 kg. Adj IBW (obesity): 140#/64 kg Estimated Energy Expenditure (kcals/day) 7392-7126 kcal/day (30-35 kcal/kg Adj IBW d/t sepsis) Estimated Protein Required (g/day) 77-96 gm/day (1.2-1.5 gm/kg Adj IBW d/t sepsis) Estimated Fluid Required (l/day) 1.9-2.3 L/day (25-30 ml/kg CBW d/t geriatric maintenance) Problem/Etiology/Signs/Symptoms Increased nutritional needs related to metabolic demands as evidenced by estimated nutritional requirements for acute state. *ongoing Expected Outcomes/Goals - Monitor appetite and PO intakes w/ goal of pt meeting at least 80% of estimated nutritional needs, labs trending WNL, normal GI function, and skin integrity/wt maintenance Dietitian Recommendations * Recommend continuing cardiac, mechanical soft, soft, finely chopped diet w/ Ensure Enlive TID (ONS provides 1050 kcal/day, 60 gm protein/day) * Encourage increase PO intakes Follow Up High Risk: F/U in 2-3 days
--- NOTE | 2021-07-08 18:12 | NUR ---
Dietitian Recommendations * Recommend continuing cardiac, mechanical soft, soft, finely chopped diet w/ Ensure Enlive TID (ONS provides 1050 kcal/day, 60 gm protein/day) * Encourage increase PO intakes LP, RD Please refer to Nutrition F/U for details.
[2021-07-08] MEDS: MONTELUKAST 10 MG TABLET PO SCH (18:53)
[2021-07-08] MEDS: TEMAZEPAM 15 MG CAPSULE PO SCH (20:26)
--- NOTE | 2021-07-08 20:40 | NUR ---
S/B DR PATEL SPOKE WITH PATIENT AND EDUCATION GIVEN DR. PATEL CALLED PATIENTS DAUGHTER SHERLYN AND SPOKE TO HER OVER THE PHONE ALMOST 20 MINS CONVERSATION, PATIENT AND DAUGHTER DONT WANT BIPAP AND WANTED TO WEAN HFNC TO NRB IN AM IF PATIENT TOLERATES. DISCUSSION OF AMA WITH PATIENT EXPLAINED BY DR PATEL TO PATIENT AND ORDERED PT/OT IN AM.
[2021-07-08] MEDS: ACETAMINOPHEN 325 MG TABLET PO PRN (20:59)
[2021-07-09] VITALS (24 sets, daily range): BP systolic 103–146
[2021-07-09] MEDS: DEXAMETHASONE SOD PHOSPHATE 10 MG/ML VIAL IVP SCH (05:44)
[2021-07-09] MEDS: LEVOTHYROXINE SODIUM 0.1 MG TABLET PO SCH (05:44)
[2021-07-09] MEDS: ALBUTEROL MDI INHALATION 8 GM INH INH SCH ×2 (05:45→13:19)
[2021-07-09 06:55] LABS: BASOPHILS # (AUTO) 0.3 K/uL (0.0-0.2); BASOPHILS % (AUTO) 1.5 % (0.0-2.0); EOSINOPHILS # (AUTO) 0.2 K/uL (0.0-0.4); EOSINOPHILS % (AUTO) 1.2 % (0.0-4.0); HEMATOCRIT 33.7 % (36-48); HEMOGLOBIN 11.7 g/dL (12.0-16.0); LYMPHOCYTES # (AUTO) 1.2 K/uL (1.0-5.5); LYMPHOCYTES % (AUTO) 7.2 % (20.5-51.5); MEAN CORPUSCULAR HEMOGLOBIN 28 pg (27-31); MEAN CORPUSCULAR HGB CONC 35 % (32-36); MEAN CORPUSCULAR VOLUME 81 fL (79.0-98.0); MONOCYTES # (AUTO) 0.6 K/uL (0.0-1.0); MONOCYTES % (AUTO) 3.7 % (1.7-9.3); NEUTROPHILS % (AUTO) 86.4 % (40.0-70.0); PLATELET COUNT (AUTO) 210 K/uL (130-430); RED BLOOD CELL COUNT(AUTO) 4.16 MIL/uL (4.2-6.2); WHITE BLOOD COUNT (AUTO) 17.3 K/uL (4.8-10.8)
[2021-07-09] MEDS: SUCRALFATE 1 GM TABLET PO SCH ×2 (07:00→17:02)
--- NOTE | 2021-07-09 07:00 | NUR ---
Recv report fr Mari fuller, patient was stable last night, the daughter wants the patient to go on non re breather only today am, this was discussed with Dr Santos, but Re anderson said she tried the patient on non rebreather only, patient stauration went down to 71%, patient remains aao x 4, normal sinus rhythm, and will continue nursing care and interventions.
[2021-07-09 08:04] LABS: ALANINE AMINOTRANSFERASE 20 U/L (12-78); ALBUMIN 2.4 g/dL (3.4-4.8); ANION GAP 9 (5-15); ASPARTATE AMINOTRANSFERASE 24 U/L (10-37); C-REACTIVE PROTEIN QUANT 1.2 mg/dL (0-0.5); CALCIUM 8.6 mg/dL (8.4-11.0); CHLORIDE 93 mmol/L (98-107); CREATININE 0.67 mg/dL (0.55-1.30); GLUCOSE 89 mg/dL (70-99); PHOSPHORUS 3.7 mg/dL (2.7-4.5); POTASSIUM 3.9 mmol/L (3.5-5.1); SODIUM SERUM 129 mmol/L (136-145); TOTAL BILIRUBIN 0.6 mg/dL (0.0-1.0); UREA NITROGEN, BLOOD 28 mg/dL (8-21)
--- NOTE | 2021-07-09 08:05 | NUR ---
RT NOTES Tried weaning pt off of HFNC and on NRM 100%, pt immediately desaturated to low 70s despite deep breathing. Pt. back on HFNC and NRM, improvement noted.
--- NOTE | 2021-07-09 08:14 | NUR ---
RT NOTES Per DANIEL Lott, dr Duong changed PEEP to 7 Addendum: 07/09/21 at 0820 by Re Richards RT wrong pt
[2021-07-09] MEDS: DOXYCYCLINE HYCLATE 100 MG in D5W 100 ML IV SCH ×3 (09:00→21:18)
[2021-07-09] MEDS: DILTIAZEM HCL 240 MG CAP.SR.24H PO SCH (09:11)
[2021-07-09] MEDS: hydrALAZINE HCL 25 MG TABLET PO SCH ×2 (09:12→21:20)
[2021-07-09] MEDS: LOSARTAN POTASSIUM 50 MG TABLET (COZAAR) PO SCH (09:12)
[2021-07-09] MEDS: SIMVASTATIN 40 MG TABLET PO SCH (09:13)
[2021-07-09] MEDS: CITALOPRAM HYDROBROMIDE 20 MG TABLET PO SCH (09:13)
[2021-07-09] MEDS: ASCORBIC ACID 500 MG TABLET PO SCH ×2 (09:14→21:19)
[2021-07-09] MEDS: CHOLECALCIFEROL (VITAMIN D3) 5,000 UNIT TABLET PO SCH (09:14)
[2021-07-09] MEDS: ASPIRIN 325 MG TABLET PO SCH (09:14)
[2021-07-09] MEDS: ENOXAPARIN SODIUM 40 MG/0.4 ML SYRINGE SUBCUT SCH (09:14)
[2021-07-09] MEDS: PANTOPRAZOLE SODIUM 40 MG/VIAL (PROTONIX) IVP SCH (09:15)
[2021-07-09] MEDS: POTASSIUM CHLORIDE 10 MEQ TAB.PRT.SR PO SCH ×2 (09:17→21:20)
[2021-07-09] MEDS: CELECOXIB 200 MG CAPSULE PO SCH ×2 (09:17→21:22)
[2021-07-09] MEDS: HYDROCHLOROTHIAZIDE 25 MG TABLET (HCTZ) PO SCH ×2 (09:17→21:20)
--- NOTE | 2021-07-09 10:00 | NUR ---
Patient is able to eat 50% of breakfast, tried patient on non rebreather only, patient's o2 sat is at 84% to 86% only, kept patient back on Hi flow nc, and 100% non rebreather mask.
[2021-07-09 10:52] LABS: ERYTHROCYTE SEDIMENTATION RATE 2 MM/HR (0-20)
[2021-07-09] MEDS: ACETAMINOPHEN 325 MG TABLET PO PRN ×2 (11:11→21:18)
--- NOTE | 2021-07-09 12:00 | NUR ---
Wpoke with Natalie patient's daughter, jory given her an updated regarding pt's condition the she didn't tolerate just the non rebreather mask, she was concerned of patient being too long in the icu, she suggested if we can transfer patient to telemetry, jory told her due to current oxygenation, patient can not go to tele yet. gianni is currently on 30L @ 100% hi flow and 100% non re breather mask.
--- NOTE | 2021-07-09 14:00 | NUR ---
Candace anderson tried once more to just keep patient on Non Rebreather mask, we both observe the patient closely for a while, patients best o2 sat is 84-87%, we placed patient back on hi flow and nrm. will continue to monitor the patient.
--- NOTE | 2021-07-09 16:00 | NUR ---
Patient taken off the non rebreather mask, patients o2 sat is better just on Hi flow 30L @ 90%, pateint o2 sat with hi flow maldonado is between 94 to 97%, left the non rebreather at the bedside, instructed pt is she gets short of breath to put in the non rebreather mask.
[2021-07-09] MEDS: MONTELUKAST 10 MG TABLET PO SCH (17:02)
--- NOTE | 2021-07-09 18:00 | NUR ---
All nursing care and issues all have been addressed, patient is better with hi flow only, i will endorsed care to third shift lieutenant nurse.
--- NOTE | 2021-07-09 20:07 | NUR ---
Patient awake alert verbally Responsive / indicative chest movement symmetrical PT on High Flow 02 @ 90 % 02 SAT 93 %
[2021-07-09] MEDS: TEMAZEPAM 15 MG CAPSULE PO SCH (21:19)
--- NOTE | 2021-07-09 21:56 | NUR ---
Patient awake on & off assist encourage position change off loading with pillows , comfort measures implemented 02 SAT 89 %
--- NOTE | 2021-07-09 22:24 | NUR ---
Escoto Catheter patent free flow of clear yellow urine noted to BSDB / .
--- NOTE | 2021-07-09 22:45 | NUR ---
TYLENOL 650 MG po administer for acute pain comfort measures implemented continue to monitor .
[2021-07-09] MEDS: cefTRIAXone 1 GM IVPB PREMIX 50 ML IV SCH (23:40)
[2021-07-10] VITALS (24 sets, daily range): BP systolic 98–134
--- NOTE | 2021-07-10 02:48 | NUR ---
DR Danielle TOBIN here to see patient .
--- NOTE | 2021-07-10 02:59 | NUR ---
02 SAT low 82 - 84 @ 90 % per RT patient placed on 100 % , 02 SAT 95 % continue to monitor .
[2021-07-10] MEDS: DEXAMETHASONE SOD PHOSPHATE 10 MG/ML VIAL IVP SCH (06:08)
[2021-07-10] MEDS: SUCRALFATE 1 GM TABLET PO SCH ×2 (06:08→17:33)
[2021-07-10] MEDS: LEVOTHYROXINE SODIUM 0.1 MG TABLET PO SCH (06:08)
[2021-07-10 06:44] LABS: BASOPHILS % (AUTO) 0.1 % (0.0-2.0); EOSINOPHILS # (AUTO) 0.2 K/uL (0.0-0.4); EOSINOPHILS % (AUTO) 1.3 % (0.0-4.0); HEMOGLOBIN 11.5 g/dL (12.0-16.0); LYMPHOCYTES # (AUTO) 0.9 K/uL (1.0-5.5); LYMPHOCYTES % (AUTO) 5.1 % (20.5-51.5); MEAN CORPUSCULAR HEMOGLOBIN 27 pg (27-31); MEAN CORPUSCULAR HGB CONC 34 % (32-36); MEAN CORPUSCULAR VOLUME 81 fL (79.0-98.0); MONOCYTES # (AUTO) 0.5 K/uL (0.0-1.0); MONOCYTES % (AUTO) 2.9 % (1.7-9.3); NEUTROPHILS # (AUTO) 16.2 K/uL (1.8-7.7); NEUTROPHILS % (AUTO) 90.6 % (40.0-70.0); PLATELET COUNT (AUTO) 158 K/uL (130-430); RED BLOOD CELL COUNT(AUTO) 4.23 MIL/uL (4.2-6.2); RED CELL DISTRIBUTION WIDTH 14.9 % (9.0-15.0); WHITE BLOOD COUNT (AUTO) 17.9 K/uL (4.8-10.8)
[2021-07-10 08:12] LABS: ANION GAP 9 (5-15); CALCIUM 8.3 mg/dL (8.4-11.0); CHLORIDE 94 mmol/L (98-107); CREATININE 0.68 mg/dL (0.55-1.30); GLUCOSE 77 mg/dL (70-99); POTASSIUM 3.8 mmol/L (3.5-5.1); SODIUM SERUM 129 mmol/L (136-145); UREA NITROGEN, BLOOD 28 mg/dL (8-21)
[2021-07-10] MEDS: PANTOPRAZOLE SODIUM 40 MG/VIAL (PROTONIX) IVP SCH (08:20)
[2021-07-10] MEDS: CHOLECALCIFEROL (VITAMIN D3) 5,000 UNIT TABLET PO SCH (08:23)
[2021-07-10] MEDS: DILTIAZEM HCL 240 MG CAP.SR.24H PO SCH (08:23)
[2021-07-10] MEDS: POTASSIUM CHLORIDE 10 MEQ TAB.PRT.SR PO SCH ×2 (08:23→21:11)
[2021-07-10] MEDS: SIMVASTATIN 40 MG TABLET PO SCH (08:23)
[2021-07-10] MEDS: ASCORBIC ACID 500 MG TABLET PO SCH ×2 (08:23→21:12)
[2021-07-10] MEDS: ASPIRIN 325 MG TABLET PO SCH (08:23)
[2021-07-10] MEDS: HYDROCHLOROTHIAZIDE 25 MG TABLET (HCTZ) PO SCH ×2 (08:24→21:12)
[2021-07-10 08:25] LABS: ALANINE AMINOTRANSFERASE 19 U/L (12-78); ALBUMIN 2.3 g/dL (3.4-4.8); ASPARTATE AMINOTRANSFERASE 22 U/L (10-37); C-REACTIVE PROTEIN QUANT 1.1 mg/dL (0-0.5); LACTATE DEHYDROGENASE 556 U/L (81-234); TOTAL BILIRUBIN 0.6 mg/dL (0.0-1.0)
[2021-07-10] MEDS: CITALOPRAM HYDROBROMIDE 20 MG TABLET PO SCH (08:25)
[2021-07-10] MEDS: LOSARTAN POTASSIUM 50 MG TABLET (COZAAR) PO SCH (08:25)
[2021-07-10] MEDS: hydrALAZINE HCL 25 MG TABLET PO SCH ×2 (08:27→21:11)
[2021-07-10] MEDS: ENOXAPARIN SODIUM 40 MG/0.4 ML SYRINGE SUBCUT SCH (08:28)
--- NOTE | 2021-07-10 08:30 | NUR ---
Activity Per bedside RN, pt sat over the side of the bed for approx 10 minutes on 100% high flow and tolerated activity without increasing SOB. Pt chooses to take off NRM and use it as she feels she needs it.
[2021-07-10] MEDS: CELECOXIB 200 MG CAPSULE PO SCH ×2 (08:32→21:11)
[2021-07-10] MEDS: DOXYCYCLINE HYCLATE 100 MG in D5W 100 ML IV SCH ×2 (08:34→21:07)
[2021-07-10 09:17] LABS: ERYTHROCYTE SEDIMENTATION RATE 8 MM/HR (0-20)
[2021-07-10] MEDS: ALBUTEROL MDI INHALATION 8 GM INH INH SCH ×2 (10:09→14:32)
--- NOTE | 2021-07-10 10:52 | NUR ---
Dr. Santos called in to order a D-Dimer test. Test ordered.
--- NOTE | 2021-07-10 12:13 | NUR ---
Dr Santos called in for D Dimer results. orders received to notify regarding full dose lovenox.
[2021-07-10] MEDS: ACETAMINOPHEN 325 MG TABLET PO PRN ×2 (12:47→21:14)
--- NOTE | 2021-07-10 14:36 | NUR ---
1355 TITRATED FI02 TO .75 WITH LITER FLOW 30. HR88 RR26 SAT 91%.DR ORDER TO KEEP SAT 88% AND UP. DANIEL ARCHER. Addendum: 07/10/21 at 1438 by Ashley Pritchett RT Amended: Links added.
--- NOTE | 2021-07-10 15:30 | NUR ---
Physical Therapy PT came to work with the patient while on 02 75%. Pt sat over side of bed and took a couple of steps in the room. 02 sats 87% during activity. Pt did not have increasing SOB. remains on 75% 02 high flow after activity.
[2021-07-10] MEDS: MONTELUKAST 10 MG TABLET PO SCH (17:33)
--- NOTE | 2021-07-10 18:51 | NUR ---
MD KHADAR ROSS [phone] SPOKE WITH SUSAN
--- NOTE | 2021-07-10 19:00 | NUR ---
Spoke with Dr. Cisneros and requested that he look at the pts DVT coverage to see if the lovenox should be increased to full dosage.
--- NOTE | 2021-07-10 19:30 | NUR ---
Opening Note Received report from AM nurse using SBAR approach.
--- NOTE | 2021-07-10 19:30 | NUR ---
Opening Note Received report from AM nurse using SBAR approach.
--- NOTE | 2021-07-10 19:52 | NUR ---
PATIENT STOOD UP TODAY AND TOOK ABOUT ONE TO TWO STEPS WITH THE ASSISTANCE OF THE PHYSICAL THERAPIST. TOLERATED WELL. ALL HER LINENS AND GOWN WERE CHANGED. PATIENT STATED THAT SHE FELT BETTER. SATURATING BETWEEN 86% TO 97% ON 75% FIO2 @ 30 LITERS. REMAINS AFEBRILE. REPORT GIVEN TO THE FINANCIAL COORDINATOR RN THAT WILL CONTINUE WITH THE CARE OF THIS PATIENT. ALL STATED PROTOCOLS REMAIN EFFECTIVE.
--- NOTE | 2021-07-10 21:00 | NUR ---
Daughter Natalie and Dr. Santos spoke on the phone and agreed of patient's o2 saturation is okay in the 85% or higher. patient is asymptomatic if she sats around that number. RT said she is also aware
[2021-07-10] MEDS: TEMAZEPAM 15 MG CAPSULE PO SCH (21:12)
[2021-07-11] VITALS (15 sets, daily range): BP systolic 99–150
--- NOTE | 2021-07-11 01:00 | NUR ---
Patient complaining that room is cold. Provided 2 extra blankets for patient and a blanket over her head.
--- NOTE | 2021-07-11 02:00 | NUR ---
BIPAP patient is desaturating in the 79's/80's. Patient refused bipap.
--- NOTE | 2021-07-11 02:05 | NUR ---
RT RT changed settings to fio2 100 and 40L
[2021-07-11] MEDS: ENOXAPARIN SODIUM 40 MG/0.4 ML SYRINGE SUBCUT SCH ×2 (03:00→21:45)
--- NOTE | 2021-07-11 03:30 | NUR ---
Patient is saturating 86%. She has on her non rebreather mask.
--- NOTE | 2021-07-11 05:00 | NUR ---
Family Family called and asked for update. Provided update for daughterMonique
--- NOTE | 2021-07-11 06:00 | NUR ---
patient is saying that the room is cold. Engineering came by and said they are uanble to fix it.
[2021-07-11] MEDS: LEVOTHYROXINE SODIUM 0.1 MG TABLET PO SCH (06:13)
[2021-07-11] MEDS: SUCRALFATE 1 GM TABLET PO SCH ×2 (06:13→18:17)
[2021-07-11] MEDS: DEXAMETHASONE SOD PHOSPHATE 10 MG/ML VIAL IVP SCH (06:13)
[2021-07-11 06:27] LABS: BASOPHILS % (AUTO) 0.1 % (0.0-2.0); EOSINOPHILS # (AUTO) 0.4 K/uL (0.0-0.4); EOSINOPHILS % (AUTO) 2.1 % (0.0-4.0); HEMATOCRIT 34.4 % (36-48); HEMOGLOBIN 11.7 g/dL (12.0-16.0); LYMPHOCYTES # (AUTO) 0.8 K/uL (1.0-5.5); LYMPHOCYTES % (AUTO) 4.3 % (20.5-51.5); MEAN CORPUSCULAR HEMOGLOBIN 28 pg (27-31); MEAN CORPUSCULAR HGB CONC 34 % (32-36); MEAN CORPUSCULAR VOLUME 81 fL (79.0-98.0); MONOCYTES # (AUTO) 0.6 K/uL (0.0-1.0); NEUTROPHILS # (AUTO) 17.6 K/uL (1.8-7.7); NEUTROPHILS % (AUTO) 90.5 % (40.0-70.0); PLATELET COUNT (AUTO) 193 K/uL (130-430); RED BLOOD CELL COUNT(AUTO) 4.25 MIL/uL (4.2-6.2); RED CELL DISTRIBUTION WIDTH 14.7 % (9.0-15.0); WHITE BLOOD COUNT (AUTO) 19.5 K/uL (4.8-10.8)
[2021-07-11 06:43] LABS: ANION GAP 8 (5-15); CALCIUM 8.5 mg/dL (8.4-11.0); CHLORIDE 95 mmol/L (98-107); CREATININE 0.55 mg/dL (0.55-1.30); GLUCOSE 83 mg/dL (70-99); POTASSIUM 3.4 mmol/L (3.5-5.1); SODIUM SERUM 131 mmol/L (136-145); UREA NITROGEN, BLOOD 26 mg/dL (8-21)
--- NOTE | 2021-07-11 07:00 | NUR ---
Recv report fr Rhonda fuller, per Toshia patieint is desaturating down to 74% last night, due to patient refusing the Non rebreather mask, currently patients' o2 sat is 84* to 85% , patient's assessment patient refuses to put bp cuff on, refuses to put on the non re breather mask on. She is complaining of room being cold, patient has multiple blankets on, i will continue nursing care and interventions.
[2021-07-11] MEDS: ALBUTEROL MDI INHALATION 8 GM INH INH SCH ×3 (07:55→19:45)
--- NOTE | 2021-07-11 08:00 | NUR ---
Patient refuses to eat.
[2021-07-11 08:09] LABS: ERYTHROCYTE SEDIMENTATION RATE 9 MM/HR (0-20)
--- NOTE | 2021-07-11 08:40 | NUR ---
Patient's god daughter Altagracia called this morining, and said that, she has been talking with Natalie patients daughter all morning, and they said that patient needs to be out if ICU, and complaining that patient is not properly being taken care of... I ve told her that patient saturation is only 85% , even though she does not present any short of breath, o2 sat of 84% to 85% is still not acceptable,, i will get Dr Santos involved.
[2021-07-11 09:17] LABS: C-REACTIVE PROTEIN QUANT 5.8 mg/dL (0-0.5)
[2021-07-11] MEDS: DOXYCYCLINE HYCLATE 100 MG in D5W 100 ML IV SCH ×2 (09:45→21:42)
[2021-07-11] MEDS: PANTOPRAZOLE SODIUM 40 MG/VIAL (PROTONIX) IVP SCH (09:45)
[2021-07-11] MEDS: ASCORBIC ACID 500 MG TABLET PO SCH ×2 (09:46→21:43)
[2021-07-11] MEDS: DILTIAZEM HCL 240 MG CAP.SR.24H PO SCH (09:46)
[2021-07-11] MEDS: POTASSIUM CHLORIDE 10 MEQ TAB.PRT.SR PO SCH ×2 (09:47→21:43)
[2021-07-11] MEDS: LOSARTAN POTASSIUM 50 MG TABLET (COZAAR) PO SCH (09:47)
[2021-07-11] MEDS: CITALOPRAM HYDROBROMIDE 20 MG TABLET PO SCH (09:47)
[2021-07-11] MEDS: hydrALAZINE HCL 25 MG TABLET PO SCH ×2 (09:47→21:42)
[2021-07-11] MEDS: HYDROCHLOROTHIAZIDE 25 MG TABLET (HCTZ) PO SCH ×2 (09:48→21:43)
[2021-07-11] MEDS: SIMVASTATIN 40 MG TABLET PO SCH (09:50)
[2021-07-11] MEDS: CHOLECALCIFEROL (VITAMIN D3) 5,000 UNIT TABLET PO SCH (09:51)
[2021-07-11] MEDS: CELECOXIB 200 MG CAPSULE PO SCH ×2 (09:53→21:42)
[2021-07-11] MEDS: ASPIRIN 325 MG TABLET PO SCH (09:54)
--- NOTE | 2021-07-11 10:00 | NUR ---
Patients scot Lauren called and spoke with Adali flores rn, he was upset and mad, he said that he is a plant inspector "i will monique you guys" , Adali told him not to call and threaten people her in the hospital, we are trying to take care of the patient, patient still on 100% fio2 on a HI Flow. i will cotninue to monitor the patient.
--- NOTE | 2021-07-11 13:21 | NUR ---
Nutrition F/U RD reviewed pt's current EMR record including diet Hx, physician notes, nursing notes, pertinent labs/meds/procedures, care trends, and care activity. Admission Dx: COVID, pneumonia PMH: asthma, hypothyroidism, endometrial CA s/p hysterectomy in the past per physician notes Pt was also found w/ sepsis per physician notes 07/11 MD notes: Leukocytosis SARS-CoV-2 Ag (Rapid) Positive 07/02 Current Diet Order/Nutrition Support: Cardiac, mechanical soft, soft, finely chopped diet w/ Ensure Enlive TID x5 days Subjective Info: Pt remains in ICU, on COVID Isolation and RD bedside visit was deferred. dietetics teacher reports that pt might be transferred today per family's request. Per EMR, the pt is on HFNC, Landry scale: 19, no skin issues/edema noted. PO intake records show pt w/ poor PO intake. Maximum encouragement during meals is warranted. Pertinent Medications: zinc sulfate, VIT C, VIT D3, protonix IV, lovenox, hydrodiuril, synthroid, Decadron, Temazepam. Pertinent Labs: 07/11 WBC 19.5 H, Na 131L, K 3.4L, BG 83WNL, BUN 26H, Cre 0.55WNL. Height: 5 feet, 6.00 inches Weight: 169 pounds/ 76.451342 kilograms (07/05)--stable Body Mass Index: 27.27 kg/m2 [place]/Adjusted Body Weight: 130#/59 kg. Adj IBW (obesity): 140#/64 kg Estimated Energy Expenditure (kcals/day) 2570-1904 kcal/day (30-35 kcal/kg Adj IBW d/t sepsis) Estimated Protein Required (g/day) 77-96 gm/day (1.2-1.5 gm/kg Adj IBW d/t sepsis) Estimated Fluid Required (l/day) 1.9-2.3 L/day (25-30 ml/kg CBW d/t geriatric maintenance) Problem/Etiology/Signs/Symptoms Increased nutritional needs related to metabolic demands as evidenced by estimated nutritional requirements for acute state. *ongoing Expected Outcomes/Goals - Monitor appetite and PO intakes w/ goal of pt meeting at least 80% of estimated nutritional needs, labs trending WNL, normal GI function, and skin integrity/wt maintenance Dietitian Recommendations * Recommend continuing cardiac, mechanical soft, soft, finely chopped diet w/ Ensure Enlive TID (ONS provides 1050 kcal/day, 60 gm protein/day) * Maximum encouragement q meal. Follow Up High Risk: F/U in 2-3 days
--- NOTE | 2021-07-11 13:26 | NUR ---
Dietitian Recommendations * Recommend continuing cardiac, mechanical soft, soft, finely chopped diet w/ Ensure Enlive TID (ONS provides 1050 kcal/day, 60 gm protein/day) * Maximum encouragement q meal. Please see Nutrition F/U note for details. KATIUSKA, RD
--- NOTE | 2021-07-11 14:25 | NUR ---
RT NOTES Titrated FIO2 to 0.90.
[2021-07-11] MEDS ORDERED: DOCUSATE SODIUM 100 MG CAPSULE PO PRN (17:30)
--- NOTE | 2021-07-11 18:00 | NUR ---
Titrated hi flow fio2 down to 85%.... also sat patient up on the side of the chair.
[2021-07-11] MEDS ORDERED: POTASSIUM CHLORIDE 20 MEQ TAB.PRT.SR PO ONE (18:06)
[2021-07-11] MEDS: MONTELUKAST 10 MG TABLET PO SCH (18:17)
[2021-07-11] MEDS: ACETAMINOPHEN 325 MG TABLET PO PRN (18:20)
--- NOTE | 2021-07-11 18:30 | NUR ---
Nilesh family updated all day long, Dr Santos came to see the patient, he is ok with o2 sat from 86 % and up.
--- NOTE | 2021-07-11 19:30 | NUR ---
Opening Note Received report from AM nurse using SBAR approach.
--- NOTE | 2021-07-11 20:15 | NUR ---
Patient is unhappy because of how cold the room was. Gave patient 2 new blankets. patient stated she wants to just sleep.
[2021-07-11] MEDS: TEMAZEPAM 15 MG CAPSULE PO SCH (21:43)
[2021-07-11] MEDS: DOCUSATE SODIUM 100 MG CAPSULE PO SCH (21:43)
[2021-07-12] VITALS (15 sets, daily range): BP systolic 120–140
[2021-07-12] MEDS: ALBUTEROL MDI INHALATION 8 GM INH INH SCH ×4 (00:39→19:45)
--- NOTE | 2021-07-12 02:00 | NUR ---
patient is resting well. No complaints. patient is happy about the pictures on the wall.
[2021-07-12] MEDS: ACETAMINOPHEN 325 MG TABLET PO PRN ×2 (05:00→12:46)
[2021-07-12] MEDS: DEXAMETHASONE SOD PHOSPHATE 10 MG/ML VIAL IVP SCH (06:10)
[2021-07-12 06:17] LABS: BASOPHILS % (AUTO) 0.2 % (0.0-2.0); EOSINOPHILS % (AUTO) 0.2 % (0.0-4.0); HEMATOCRIT 33.5 % (36-48); HEMOGLOBIN 11.3 g/dL (12.0-16.0); LYMPHOCYTES # (AUTO) 0.6 K/uL (1.0-5.5); LYMPHOCYTES % (AUTO) 4.2 % (20.5-51.5); MEAN CORPUSCULAR HEMOGLOBIN 28 pg (27-31); MEAN CORPUSCULAR HGB CONC 34 % (32-36); MEAN CORPUSCULAR VOLUME 82 fL (79.0-98.0); MONOCYTES # (AUTO) 0.7 K/uL (0.0-1.0); MONOCYTES % (AUTO) 5.1 % (1.7-9.3); NEUTROPHILS # (AUTO) 13.2 K/uL (1.8-7.7); NEUTROPHILS % (AUTO) 90.3 % (40.0-70.0); PLATELET COUNT (AUTO) 163 K/uL (130-430); RED BLOOD CELL COUNT(AUTO) 4.09 MIL/uL (4.2-6.2); RED CELL DISTRIBUTION WIDTH 14.5 % (9.0-15.0); WHITE BLOOD COUNT (AUTO) 14.6 K/uL (4.8-10.8)
[2021-07-12] MEDS: LEVOTHYROXINE SODIUM 0.1 MG TABLET PO SCH (06:21)
[2021-07-12] MEDS: SUCRALFATE 1 GM TABLET PO SCH ×2 (06:22→17:30)
[2021-07-12 06:44] LABS: ANION GAP 5 (5-15); CALCIUM 8.5 mg/dL (8.4-11.0); CHLORIDE 95 mmol/L (98-107); CREATININE 0.72 mg/dL (0.55-1.30); GLUCOSE 98 mg/dL (70-99); POTASSIUM 3.8 mmol/L (3.5-5.1); SODIUM SERUM 130 mmol/L (136-145); UREA NITROGEN, BLOOD 25 mg/dL (8-21)
--- NOTE | 2021-07-12 07:00 | NUR ---
Recv report Fr Toshia fuller, patient was stable all night , more cooperative, aao x 4, telmetry shows sr, patient O2 still Hi Flow 40L @ 90%, will continue to titrate according to patient's condition, i will continue nursing care and interventions.
[2021-07-12] MEDS: ALBUTEROL MDI INHALATION 8 GM INH INH PRN (08:15)
[2021-07-12] MEDS: ASPIRIN 325 MG TABLET PO SCH (08:47)
[2021-07-12] MEDS: DOXYCYCLINE HYCLATE 100 MG in D5W 100 ML IV SCH (08:47)
[2021-07-12 08:50] LABS: C-REACTIVE PROTEIN QUANT 7.6 mg/dL (0-0.5)
[2021-07-12] MEDS: SIMVASTATIN 40 MG TABLET PO SCH (08:50)
[2021-07-12] MEDS: HYDROCHLOROTHIAZIDE 25 MG TABLET (HCTZ) PO SCH ×2 (08:50→21:23)
[2021-07-12] MEDS: hydrALAZINE HCL 25 MG TABLET PO SCH ×2 (08:50→21:25)
[2021-07-12] MEDS: ASCORBIC ACID 500 MG TABLET PO SCH ×2 (08:51→20:46)
[2021-07-12] MEDS: CITALOPRAM HYDROBROMIDE 20 MG TABLET PO SCH (08:51)
[2021-07-12] MEDS: POTASSIUM CHLORIDE 10 MEQ TAB.PRT.SR PO SCH ×2 (08:51→20:46)
[2021-07-12] MEDS: CHOLECALCIFEROL (VITAMIN D3) 5,000 UNIT TABLET PO SCH (08:51)
[2021-07-12] MEDS: LOSARTAN POTASSIUM 50 MG TABLET (COZAAR) PO SCH (08:52)
[2021-07-12] MEDS: CELECOXIB 200 MG CAPSULE PO SCH ×2 (08:53→20:46)
[2021-07-12] MEDS: DILTIAZEM HCL 240 MG CAP.SR.24H PO SCH (08:54)
[2021-07-12] MEDS: DOCUSATE SODIUM 100 MG CAPSULE PO SCH ×2 (08:59→20:45)
[2021-07-12] MEDS: PANTOPRAZOLE SODIUM 40 MG/VIAL (PROTONIX) IVP SCH (08:59)
[2021-07-12] MEDS: ENOXAPARIN SODIUM 40 MG/0.4 ML SYRINGE SUBCUT SCH ×2 (09:00→20:50)
--- NOTE | 2021-07-12 10:00 | NUR ---
Patient able to sit up on the side bed, O2 sat remains at 91% to 92%, patient is not short of breath, i will cotninue to monitor patients breathing.
[2021-07-12 10:59] LABS: ERYTHROCYTE SEDIMENTATION RATE 14 MM/HR (0-20)
--- NOTE | 2021-07-12 12:00 | NUR ---
S/w patient's daughter Natalie, given her an update regarding patient's condition, patient fio2 titrated down to 80%, patient is tolerating the weaning. instructed patient to cough and deep breath, also to call if she is in discomfort or short of breath
[2021-07-12] MEDS: MONTELUKAST 10 MG TABLET PO SCH (17:30)
--- NOTE | 2021-07-12 18:00 | NUR ---
Patient did well all day, current hi flow settings are at 35L @ 100%, o2 sat between 86 to 92%, dr Santos is ok with O2 sat above 85% as long as patient is not in respiratory distress. i will give reposrt to forest and conservation worker nurse.
--- NOTE | 2021-07-12 19:15 | NUR ---
Pt report received. Pt resting quietly, easily awakened, AAOx4. Respirations even and non-labored, on high flow O2 at 35 LPM/NC at 70% FiO2. SPO2 at 92%. SL LFA paten and secure. F/C draining ascencion urine to bag. Oral care provided. Pt c/o headache 03/26.
--- NOTE | 2021-07-12 20:00 | NUR ---
Pt resting quietly with eyes closed. VSS, NAD.
[2021-07-12] MEDS: TEMAZEPAM 15 MG CAPSULE PO SCH (20:45)
--- NOTE | 2021-07-12 21:35 | NUR ---
Pt medicated with Tylenol 650 mg PO for c/o headache 03/26.
[2021-07-13] VITALS (14 sets, daily range): BP systolic 105–188
[2021-07-13] MEDS: ALBUTEROL MDI INHALATION 8 GM INH INH SCH ×4 (00:42→19:37)
--- NOTE | 2021-07-13 01:20 | NUR ---
SPO2 78%. RT at bedside and FiO2 increased to 80%.
[2021-07-13] MEDS ORDERED: PIPERACILLIN/TAZOBACTAM 2.25 GM VIAL IV ONE (02:25)
[2021-07-13] MEDS: ACETAMINOPHEN 325 MG TABLET PO PRN ×3 (02:35→20:46)
--- NOTE | 2021-07-13 04:25 | NUR ---
SPO2 77%. FiO2 increased to 90%. SPO2 increased to 84%. RT explained to pt that by not wearing non-rebreather in addition to NC, BiPAP may be required. Pt refused to wear Non-rebreather face mask and also stated that she will not be placed on BiPAP.
[2021-07-13] MEDS: SUCRALFATE 1 GM TABLET PO SCH ×2 (06:30→16:20)
[2021-07-13] MEDS: LEVOTHYROXINE SODIUM 0.1 MG TABLET PO SCH (06:30)
[2021-07-13] MEDS: DEXAMETHASONE SOD PHOSPHATE 10 MG/ML VIAL IVP SCH (06:30)
[2021-07-13] MEDS: PIPERACILLIN/TAZO 2.25G/DEX-IS 50 ML IV SCH ×4 (06:31→16:20)
--- NOTE | 2021-07-13 06:35 | NUR ---
SPO2 91% on High Flow NC. FiO2 decreased to 85%.
[2021-07-13 06:37] LABS: BASOPHILS % (AUTO) 0.1 % (0.0-2.0); EOSINOPHILS % (AUTO) 0.1 % (0.0-4.0); HEMATOCRIT 33.4 % (36-48); HEMOGLOBIN 11.2 g/dL (12.0-16.0); LYMPHOCYTES # (AUTO) 0.7 K/uL (1.0-5.5); LYMPHOCYTES % (AUTO) 5.5 % (20.5-51.5); MEAN CORPUSCULAR HEMOGLOBIN 28 pg (27-31); MEAN CORPUSCULAR HGB CONC 34 % (32-36); MEAN CORPUSCULAR VOLUME 82 fL (79.0-98.0); MONOCYTES # (AUTO) 0.8 K/uL (0.0-1.0); MONOCYTES % (AUTO) 5.8 % (1.7-9.3); NEUTROPHILS # (AUTO) 11.9 K/uL (1.8-7.7); NEUTROPHILS % (AUTO) 88.5 % (40.0-70.0); PLATELET COUNT (AUTO) 226 K/uL (130-430); RED BLOOD CELL COUNT(AUTO) 4.09 MIL/uL (4.2-6.2); RED CELL DISTRIBUTION WIDTH 14.5 % (9.0-15.0); WHITE BLOOD COUNT (AUTO) 13.4 K/uL (4.8-10.8)
[2021-07-13 06:45] LABS: ANION GAP 9 (5-15); CALCIUM 8.3 mg/dL (8.4-11.0); CHLORIDE 93 mmol/L (98-107); CREATININE 0.69 mg/dL (0.55-1.30); GLUCOSE 98 mg/dL (70-99); POTASSIUM 3.8 mmol/L (3.5-5.1); SODIUM SERUM 126 mmol/L (136-145); UREA NITROGEN, BLOOD 30 mg/dL (8-21)
[2021-07-13 06:49] LABS: ALANINE AMINOTRANSFERASE 18 U/L (12-78); ALBUMIN 2.4 g/dL (3.4-4.8); ASPARTATE AMINOTRANSFERASE 25 U/L (10-37); C-REACTIVE PROTEIN QUANT 2.1 mg/dL (0-0.5); LACTATE DEHYDROGENASE 591 U/L (81-234); TOTAL BILIRUBIN 0.5 mg/dL (0.0-1.0)
--- NOTE | 2021-07-13 07:00 | NUR ---
Recv report fr Ricky rn, per Ricky patient was desaturating at 70% last night so hi flow fio2 was increased to 90%, patient denies short of breath, i will continue to monitor the patient and adjust the oxygenation per patient's condition.
--- NOTE | 2021-07-13 07:09 | NUR ---
Pt report given to oncoming RN. Pt AAOx3, High Flow O2 at 35 LPM/NC with FiO2 at 85%, SPO2 91%. Pt denies c/o pain or discomfort. VSS, NAD.
--- NOTE | 2021-07-13 08:00 | NUR ---
Samantha anderson, titrated down hi flow at 35L @ 80%....
[2021-07-13] MEDS: PANTOPRAZOLE SODIUM 40 MG/VIAL (PROTONIX) IVP SCH (08:16)
[2021-07-13] MEDS: HYDROCHLOROTHIAZIDE 25 MG TABLET (HCTZ) PO SCH ×2 (08:16→22:17)
[2021-07-13] MEDS: ASCORBIC ACID 500 MG TABLET PO SCH ×2 (08:16→20:45)
[2021-07-13] MEDS: ASPIRIN 325 MG TABLET PO SCH (08:16)
[2021-07-13] MEDS: CITALOPRAM HYDROBROMIDE 20 MG TABLET PO SCH (08:17)
[2021-07-13] MEDS: POTASSIUM CHLORIDE 10 MEQ TAB.PRT.SR PO SCH ×2 (08:17→20:45)
[2021-07-13] MEDS: SIMVASTATIN 40 MG TABLET PO SCH (08:17)
[2021-07-13] MEDS: CHOLECALCIFEROL (VITAMIN D3) 5,000 UNIT TABLET PO SCH (08:17)
[2021-07-13] MEDS: LOSARTAN POTASSIUM 50 MG TABLET (COZAAR) PO SCH (08:18)
[2021-07-13] MEDS: CELECOXIB 200 MG CAPSULE PO SCH ×2 (08:20→20:46)
[2021-07-13] MEDS: DILTIAZEM HCL 240 MG CAP.SR.24H PO SCH (08:21)
[2021-07-13] MEDS: hydrALAZINE HCL 25 MG TABLET PO SCH ×2 (08:22→20:46)
[2021-07-13] MEDS: DOCUSATE SODIUM 100 MG CAPSULE PO SCH ×2 (09:00→20:45)
[2021-07-13] MEDS: ENOXAPARIN SODIUM 40 MG/0.4 ML SYRINGE SUBCUT SCH ×2 (09:00→20:51)
[2021-07-13 11:46] LABS: ERYTHROCYTE SEDIMENTATION RATE 9 MM/HR (0-20)
--- NOTE | 2021-07-13 14:00 | NUR ---
Nutrition F/U RD reviewed pt's current EMR record including diet Hx, physician notes, nursing notes, pertinent labs/meds/procedures, care trends, and care activity. Admission Dx: COVID, pneumonia PMH: asthma, hypothyroidism, endometrial CA s/p hysterectomy in the past per physician notes Pt was also found w/ sepsis per physician notes 07/11 MD notes: Leukocytosis SARS-CoV-2 Ag (Rapid) Positive 07/02 Current Diet Order/Nutrition Support: Cardiac, mechanical soft, soft, finely chopped diet w/ Ensure Enlive TID x7 days Subjective Info: Pt remains in ICU, on COVID airborne isolation and RD bedside visit was deferred. Pt's primary RN reported that pt tends to eat a little bit, and prefers the sides like soup, ice cream, fruit. He also reported that pt's oxygenation has been improving, and skin is still intact. Per EMR review, PO intake of 25% x1 meal since last RD F/U; abd is soft w/ active bowel sounds; no recent BMs noted; Landry scale: 19, no PIs noted. Current diet remains appropriate, however, maximum encouragement at meal times is warranted. Pertinent Medications: colace, lovenox, zinc, VIT C, VIT D2, hydrodiuril, synthroid Pertinent Labs: WBC 13.4 H, Na 126 L, K 3.8 WNL, BG 98 WNL, BUN 30 H Height: 5'6" Weight: 169#/ 76.6 kg (07/05) --stable Body Mass Index: 27.27 kg/m2 [place]/Adjusted Body Weight: 130#/59 kg. Adj IBW (obesity): 140#/64 kg Estimated Energy Expenditure (kcals/day) 3728-7271 kcal/day (30-35 kcal/kg Adj IBW d/t sepsis) Estimated Protein Required (g/day) 77-96 gm/day (1.2-1.5 gm/kg Adj IBW d/t sepsis) Estimated Fluid Required (l/day) 1.9-2.3 L/day (25-30 ml/kg CBW d/t geriatric maintenance) Problem/Etiology/Signs/Symptoms Increased nutritional needs related to metabolic demands as evidenced by estimated nutritional requirements for acute state. *ongoing Expected Outcomes/Goals - Monitor appetite and PO intakes w/ goal of pt meeting at least 80% of estimated nutritional needs, labs trending WNL, normal GI function, and skin integrity/wt maintenance Dietitian Recommendations * Recommend continuing cardiac, mechanical soft, soft, finely chopped diet w/ Ensure Enlive TID (ONS provides 1050 kcal/day, 60 gm protein/day) * Maximum encouragement q meal Follow Up High Risk: F/U in 2-3 days
--- NOTE | 2021-07-13 14:08 | NUR ---
Dietitian Recommendations * Recommend continuing cardiac, mechanical soft, soft, finely chopped diet w/ Ensure Enlive TID (ONS provides 1050 kcal/day, 60 gm protein/day) * Maximum encouragement q meal LP, RD Please refer to Nutrition F/U for details.
[2021-07-13] MEDS: MONTELUKAST 10 MG TABLET PO SCH (16:20)
--- NOTE | 2021-07-13 19:30 | NUR ---
Pt report received. Pt AAOx3, even and non-labored respirations, O2 at 35 LPM/HFNC with 60% FiO2. SPO2 85-90%. PIV LFA patent and secure. F/C draining yellow urine. Call murguia in reach, bed in low position, SR x 3. No needs verbalized at this time.
--- NOTE | 2021-07-13 20:00 | NUR ---
D5NS started at 100 mL/hr per MD order. PIV to LFA patent and secure.
[2021-07-13] MEDS ORDERED: HYDROCHLOROTHIAZIDE 12.5 MG CAPSULE (HCTZ) ONE (21:41)
--- NOTE | 2021-07-13 22:03 | NUR ---
PAGED DR. DUDLEY [phone] SPOKE WITH AKIN
--- NOTE | 2021-07-13 22:05 | NUR ---
Pt requests Restoril for sleep. Previous order auto D/C'd this AM. Called Dr. Stover and order received to continue Restoril 30 mg PO q HS PRN for insomnia.
[2021-07-13] MEDS: D5NS 1,000 ML IV SCH (22:16)
[2021-07-13] MEDS ORDERED: TEMAZEPAM 15 MG CAPSULE ONE (22:17)
[2021-07-13] MEDS: TEMAZEPAM 15 MG CAPSULE PO PRN (22:19)
--- NOTE | 2021-07-13 22:40 | NUR ---
Dr. Santos making rounds. Updated on pt status and no new orders.
--- NOTE | 2021-07-13 23:00 | NUR ---
SPO2 at 77%. Respirations even and non-labored. FiO2 increased to 65%
--- NOTE | 2021-07-13 23:10 | NUR ---
SPO2 at 80%. Respirations even and non-labored. FiO2 increased to 70%
--- NOTE | 2021-07-13 23:20 | NUR ---
Order Clarification with Dr. Santos r/t O2 titration: Continue to titrate FiO2 to maintain SPO2 >85%.
[2021-07-14] VITALS (24 sets, daily range): BP systolic 107–177
--- NOTE | 2021-07-14 | NUR ---
B/P 109/61. Pt resting quietly, easily awakened, denies c/o pain or discomfort. Will continue to monitor B/P.
[2021-07-14] MEDS: PIPERACILLIN/TAZO 2.25G/DEX-IS 50 ML IV SCH ×4 (00:23→17:14)
[2021-07-14] MEDS: ALBUTEROL MDI INHALATION 8 GM INH INH SCH ×4 (00:36→22:08)
--- NOTE | 2021-07-14 03:15 | NUR ---
SPO2 70%. FiO2 increased to 80%. Pt alert, responsive, coherent speech, denies c/o pain or discomfort.
--- NOTE | 2021-07-14 03:20 | NUR ---
SPO2 75%. FiO2 increased to 90%. Pt alert, responsive, coherent speech, denies c/o pain or discomfort.
--- NOTE | 2021-07-14 03:30 | NUR ---
SPO2 80%. FiO2 increased to 100%. Pt alert, responsive, coherent speech, denies c/o pain or discomfort. Will continue to monitor and titrate FiO2 as needed.
--- NOTE | 2021-07-14 03:40 | NUR ---
SPO2 92%. FiO2 increased to 95%.
[2021-07-14] MEDS: SUCRALFATE 1 GM TABLET PO SCH ×2 (06:11→17:13)
[2021-07-14] MEDS: LEVOTHYROXINE SODIUM 0.1 MG TABLET PO SCH (06:11)
[2021-07-14] MEDS: DEXAMETHASONE SOD PHOSPHATE 10 MG/ML VIAL IVP SCH (06:12)
[2021-07-14] MEDS: D5NS 1,000 ML IV SCH ×3 (06:14→18:44)
[2021-07-14 06:30] LABS: BASOPHILS % (AUTO) 0.2 % (0.0-2.0); EOSINOPHILS % (AUTO) 0.2 % (0.0-4.0); HEMATOCRIT 31.1 % (36-48); HEMOGLOBIN 10.4 g/dL (12.0-16.0); LYMPHOCYTES # (AUTO) 0.7 K/uL (1.0-5.5); LYMPHOCYTES % (AUTO) 5.6 % (20.5-51.5); MEAN CORPUSCULAR HEMOGLOBIN 27 pg (27-31); MEAN CORPUSCULAR HGB CONC 34 % (32-36); MEAN CORPUSCULAR VOLUME 81 fL (79.0-98.0); MONOCYTES # (AUTO) 0.9 K/uL (0.0-1.0); MONOCYTES % (AUTO) 7.1 % (1.7-9.3); NEUTROPHILS # (AUTO) 10.5 K/uL (1.8-7.7); NEUTROPHILS % (AUTO) 86.9 % (40.0-70.0); PLATELET COUNT (AUTO) 221 K/uL (130-430); RED BLOOD CELL COUNT(AUTO) 3.82 MIL/uL (4.2-6.2); RED CELL DISTRIBUTION WIDTH 14.8 % (9.0-15.0)
[2021-07-14 06:32] LABS: ANION GAP 9 (5-15); C-REACTIVE PROTEIN QUANT 0.6 mg/dL (0-0.5); CALCIUM 7.9 mg/dL (8.4-11.0); CHLORIDE 94 mmol/L (98-107); CREATININE 0.78 mg/dL (0.55-1.30); GLUCOSE 131 mg/dL (70-99); POTASSIUM 3.3 mmol/L (3.5-5.1); SODIUM SERUM 127 mmol/L (136-145); UREA NITROGEN, BLOOD 24 mg/dL (8-21)
--- NOTE | 2021-07-14 07:00 | NUR ---
Pt report given to oncoming RN. Pt AAOx3, coherent speech, even and non-labored respirations, O2 at 35LPM/HFNC at 95% FiO2. Pt required frequent adjustments in FiO2 r/t SPO2 < 85%. SL LFA patent and secure with D5NS at 100 mL/hr. F/C draining yellow/ascencion urine with total U/O 1000 mL this shift.
[2021-07-14] MEDS: PANTOPRAZOLE SODIUM 40 MG/VIAL (PROTONIX) IVP SCH (08:34)
[2021-07-14] MEDS: hydrALAZINE HCL 25 MG TABLET PO SCH ×2 (08:35→21:58)
[2021-07-14] MEDS: ASPIRIN 325 MG TABLET PO SCH (08:35)
[2021-07-14] MEDS: DILTIAZEM HCL 240 MG CAP.SR.24H PO SCH (08:36)
[2021-07-14] MEDS: CITALOPRAM HYDROBROMIDE 20 MG TABLET PO SCH (08:37)
[2021-07-14] MEDS: LOSARTAN POTASSIUM 50 MG TABLET (COZAAR) PO SCH (08:37)
[2021-07-14] MEDS: DOCUSATE SODIUM 100 MG CAPSULE PO SCH ×2 (08:37→21:59)
[2021-07-14] MEDS: ASCORBIC ACID 500 MG TABLET PO SCH ×2 (08:37→22:00)
[2021-07-14] MEDS: CHOLECALCIFEROL (VITAMIN D3) 5,000 UNIT TABLET PO SCH (08:38)
[2021-07-14] MEDS: SIMVASTATIN 40 MG TABLET PO SCH (08:39)
[2021-07-14] MEDS: POTASSIUM CHLORIDE 10 MEQ TAB.PRT.SR PO SCH ×2 (08:39→22:00)
[2021-07-14] MEDS: CELECOXIB 200 MG CAPSULE PO SCH ×2 (08:40→21:58)
[2021-07-14] MEDS: HYDROCHLOROTHIAZIDE 25 MG TABLET (HCTZ) PO SCH ×2 (08:43→21:59)
[2021-07-14] MEDS: ENOXAPARIN SODIUM 40 MG/0.4 ML SYRINGE SUBCUT SCH ×2 (08:44→21:00)
[2021-07-14] MEDS ORDERED: POTASSIUM CHLORIDE 20 MEQ TAB.PRT.SR PO ONE (09:30)
--- NOTE | 2021-07-14 10:48 | NUR ---
0805 titrated fio2 to .90. per dr hall pt sat ok in 80's. pt saturation 86%. instructed on deep breathing. rn aware. will cont to monitor. Addendum: 07/14/21 at 1050 by Ashley Pritchett RT Amended: Links added.
--- NOTE | 2021-07-14 11:00 | NUR ---
k level was 3.2 was given 40 meq potassium po as order no abnorm. noted
[2021-07-14 12:17] LABS: ERYTHROCYTE SEDIMENTATION RATE 7 MM/HR (0-20)
[2021-07-14] MEDS: MONTELUKAST 10 MG TABLET PO SCH (17:13)
--- NOTE | 2021-07-14 18:49 | NUR ---
pt condition remains stable throughout the shift refused am care and bed change times 4 appetite fair has a payton drainiing qs cl yellow urine remains on hiflow nc arnulfo well sr on the monitor vss pt didn't arnulfo PT well today check PT notes.
--- NOTE | 2021-07-14 19:31 | NUR ---
Received SBAR report from off coming RN for continuity of care. Pt laying in bed with eyes closed, no s/s of distress noted. IVF infusing @ 100 ml/hr. Safety precautions in place.
--- NOTE | 2021-07-14 22:00 | NUR ---
IV PLACEMENT: # 20 gauge angiocath placed to right wrist. Use of asceptic technique. Opsite placed over site. Blood return noted. Flushed with 10 cc of normal saline. No evidence of infiltration noted. Patient tolerated well.
[2021-07-14] MEDS: TEMAZEPAM 15 MG CAPSULE PO PRN (22:26)
[2021-07-15] VITALS (23 sets, daily range): BP systolic 118–166
[2021-07-15] MEDS: ALBUTEROL MDI INHALATION 8 GM INH INH SCH ×4 (01:29→20:17)
[2021-07-15] MEDS: PIPERACILLIN/TAZO 2.25G/DEX-IS 50 ML IV SCH ×4 (05:43→17:30)
[2021-07-15] MEDS: LEVOTHYROXINE SODIUM 0.1 MG TABLET PO SCH (05:44)
[2021-07-15] MEDS: DEXAMETHASONE SOD PHOSPHATE 10 MG/ML VIAL IVP SCH (05:44)
--- NOTE | 2021-07-15 07:30 | NUR ---
Endorsed SBAR report to oncoming RN ofr continuity of care.
[2021-07-15 07:36] LABS: BASOPHILS % (AUTO) 0.1 % (0.0-2.0); EOSINOPHILS # (AUTO) 0.1 K/uL (0.0-0.4); EOSINOPHILS % (AUTO) 0.6 % (0.0-4.0); HEMATOCRIT 33.8 % (36-48); HEMOGLOBIN 11.4 g/dL (12.0-16.0); LYMPHOCYTES # (AUTO) 0.7 K/uL (1.0-5.5); LYMPHOCYTES % (AUTO) 4.9 % (20.5-51.5); MEAN CORPUSCULAR HEMOGLOBIN 27 pg (27-31); MEAN CORPUSCULAR HGB CONC 34 % (32-36); MEAN CORPUSCULAR VOLUME 81 fL (79.0-98.0); MONOCYTES # (AUTO) 0.8 K/uL (0.0-1.0); MONOCYTES % (AUTO) 5.9 % (1.7-9.3); NEUTROPHILS # (AUTO) 12.5 K/uL (1.8-7.7); NEUTROPHILS % (AUTO) 88.5 % (40.0-70.0); PLATELET COUNT (AUTO) 274 K/uL (130-430); RED BLOOD CELL COUNT(AUTO) 4.15 MIL/uL (4.2-6.2); RED CELL DISTRIBUTION WIDTH 14.8 % (9.0-15.0); WHITE BLOOD COUNT (AUTO) 14.1 K/uL (4.8-10.8)
[2021-07-15] MEDS: SUCRALFATE 1 GM TABLET PO SCH ×2 (08:00→17:30)
[2021-07-15] MEDS: ASPIRIN 325 MG TABLET PO SCH (08:48)
[2021-07-15] MEDS: PANTOPRAZOLE SODIUM 40 MG/VIAL (PROTONIX) IVP SCH (08:48)
[2021-07-15] MEDS: hydrALAZINE HCL 25 MG TABLET PO SCH ×2 (08:48→21:02)
[2021-07-15] MEDS: CELECOXIB 200 MG CAPSULE PO SCH ×2 (08:49→21:02)
[2021-07-15] MEDS: DILTIAZEM HCL 240 MG CAP.SR.24H PO SCH (08:49)
[2021-07-15] MEDS: HYDROCHLOROTHIAZIDE 25 MG TABLET (HCTZ) PO SCH ×2 (08:49→21:03)
[2021-07-15] MEDS: LOSARTAN POTASSIUM 50 MG TABLET (COZAAR) PO SCH (08:49)
[2021-07-15] MEDS: ASCORBIC ACID 500 MG TABLET PO SCH ×2 (08:49→21:04)
[2021-07-15] MEDS: CITALOPRAM HYDROBROMIDE 20 MG TABLET PO SCH (08:49)
[2021-07-15] MEDS: DOCUSATE SODIUM 100 MG CAPSULE PO SCH ×2 (08:49→21:03)
[2021-07-15] MEDS: CHOLECALCIFEROL (VITAMIN D3) 5,000 UNIT TABLET PO SCH (08:50)
[2021-07-15] MEDS: SIMVASTATIN 40 MG TABLET PO SCH (08:50)
[2021-07-15] MEDS: POTASSIUM CHLORIDE 10 MEQ TAB.PRT.SR PO SCH ×2 (08:50→21:03)
[2021-07-15] MEDS: ENOXAPARIN SODIUM 40 MG/0.4 ML SYRINGE SUBCUT SCH ×2 (08:52→22:19)
[2021-07-15 09:40] LABS: ANION GAP 9 (5-15); CALCIUM 8.3 mg/dL (8.4-11.0); CHLORIDE 99 mmol/L (98-107); CREATININE 0.63 mg/dL (0.55-1.30); GLUCOSE 94 mg/dL (70-99); POTASSIUM 3.9 mmol/L (3.5-5.1); SODIUM SERUM 132 mmol/L (136-145); UREA NITROGEN, BLOOD 13 mg/dL (8-21)
[2021-07-15 10:01] LABS: ALANINE AMINOTRANSFERASE 24 U/L (12-78); ALBUMIN 2.3 g/dL (3.4-4.8); ASPARTATE AMINOTRANSFERASE 23 U/L (10-37); LACTATE DEHYDROGENASE 606 U/L (81-234); TOTAL BILIRUBIN 0.3 mg/dL (0.0-1.0)
[2021-07-15 10:31] LABS: C-REACTIVE PROTEIN QUANT 0.3 mg/dL (0-0.5)
[2021-07-15] MEDS: D5NS 1,000 ML IV SCH ×2 (11:09→21:01)
[2021-07-15 14:17] LABS: ERYTHROCYTE SEDIMENTATION RATE 7 MM/HR (0-20)
[2021-07-15] MEDS: MONTELUKAST 10 MG TABLET PO SCH (17:30)
[2021-07-15] MEDS: ACETAMINOPHEN 325 MG TABLET PO PRN (17:31)
--- NOTE | 2021-07-15 19:30 | NUR ---
PM SHIFT ASSESSMENT Patient is awake and alert. Patient is on high flow, tolerating current settings. SR on monitor. Skin warm and dry. IVF infusing. Escoto catheter in place and draining to gravity. Safety precautions in place, call light within reach. Will continue to monitor.
[2021-07-15] MEDS: TEMAZEPAM 15 MG CAPSULE PO PRN (21:23)
[2021-07-16] VITALS (25 sets, daily range): BP systolic 118–177
[2021-07-16] MEDS: ALBUTEROL MDI INHALATION 8 GM INH INH SCH ×4 (02:47→19:57)
--- NOTE | 2021-07-16 06:05 | NUR ---
Assisted patient to reposition, new linens applied. All needs met at this time. Safety precautions in place, call light within reach. Will continue to monitor.
[2021-07-16] MEDS: PIPERACILLIN/TAZO 2.25G/DEX-IS 50 ML IV SCH ×4 (06:19→19:30)
[2021-07-16] MEDS: LEVOTHYROXINE SODIUM 0.1 MG TABLET PO SCH (06:19)
[2021-07-16] MEDS: DEXAMETHASONE SOD PHOSPHATE 10 MG/ML VIAL IVP SCH (06:19)
[2021-07-16] MEDS: SUCRALFATE 1 GM TABLET PO SCH ×2 (06:20→16:09)
[2021-07-16 06:47] LABS: ALANINE AMINOTRANSFERASE 22 U/L (12-78); ALBUMIN 2.1 g/dL (3.4-4.8); ANION GAP 10 (5-15); ASPARTATE AMINOTRANSFERASE 28 U/L (10-37); C-REACTIVE PROTEIN QUANT 2.5 mg/dL (0-0.5); CALCIUM 8.3 mg/dL (8.4-11.0); CHLORIDE 95 mmol/L (98-107); CREATININE 0.55 mg/dL (0.55-1.30); GLUCOSE 94 mg/dL (70-99); POTASSIUM 3.3 mmol/L (3.5-5.1); SODIUM SERUM 128 mmol/L (136-145); TOTAL BILIRUBIN 0.5 mg/dL (0.0-1.0); UREA NITROGEN, BLOOD 12 mg/dL (8-21)
[2021-07-16 06:48] LABS: EOSINOPHILS # (AUTO) 0.1 K/uL (0.0-0.4); EOSINOPHILS % (AUTO) 0.6 % (0.0-4.0); HEMATOCRIT 33.5 % (36-48); HEMOGLOBIN 11.4 g/dL (12.0-16.0); LYMPHOCYTES # (AUTO) 0.7 K/uL (1.0-5.5); LYMPHOCYTES % (AUTO) 5.5 % (20.5-51.5); MEAN CORPUSCULAR HEMOGLOBIN 28 pg (27-31); MEAN CORPUSCULAR HGB CONC 34 % (32-36); MEAN CORPUSCULAR VOLUME 81 fL (79.0-98.0); MONOCYTES # (AUTO) 0.6 K/uL (0.0-1.0); NEUTROPHILS # (AUTO) 11.4 K/uL (1.8-7.7); NEUTROPHILS % (AUTO) 88.9 % (40.0-70.0); PLATELET COUNT (AUTO) 272 K/uL (130-430); RED BLOOD CELL COUNT(AUTO) 4.13 MIL/uL (4.2-6.2); RED CELL DISTRIBUTION WIDTH 14.4 % (9.0-15.0); WHITE BLOOD COUNT (AUTO) 12.8 K/uL (4.8-10.8)
--- NOTE | 2021-07-16 07:25 | NUR ---
ENDORSEMENT Patient care endorsed to dayshift RN using nursing SBAR.
[2021-07-16] MEDS: SIMVASTATIN 40 MG TABLET PO SCH (08:41)
[2021-07-16] MEDS: ASPIRIN 325 MG TABLET PO SCH (08:41)
[2021-07-16] MEDS: CHOLECALCIFEROL (VITAMIN D3) 5,000 UNIT TABLET PO SCH (08:41)
[2021-07-16] MEDS: CITALOPRAM HYDROBROMIDE 20 MG TABLET PO SCH (08:41)
[2021-07-16] MEDS: PANTOPRAZOLE SODIUM 40 MG/VIAL (PROTONIX) IVP SCH (08:41)
[2021-07-16] MEDS: DOCUSATE SODIUM 100 MG CAPSULE PO SCH ×2 (08:41→21:12)
[2021-07-16] MEDS: DILTIAZEM HCL 240 MG CAP.SR.24H PO SCH (08:43)
[2021-07-16] MEDS: ASCORBIC ACID 500 MG TABLET PO SCH ×2 (08:43→21:12)
[2021-07-16] MEDS: POTASSIUM CHLORIDE 10 MEQ TAB.PRT.SR PO SCH ×2 (08:44→21:12)
[2021-07-16] MEDS: hydrALAZINE HCL 25 MG TABLET PO SCH ×2 (08:44→21:12)
[2021-07-16] MEDS: HYDROCHLOROTHIAZIDE 25 MG TABLET (HCTZ) PO SCH ×2 (08:45→21:13)
[2021-07-16] MEDS: LOSARTAN POTASSIUM 50 MG TABLET (COZAAR) PO SCH (08:51)
[2021-07-16] MEDS: CELECOXIB 200 MG CAPSULE PO SCH ×2 (08:54→21:12)
[2021-07-16] MEDS: CHOLECALCIFEROL (VITAMIN D3) 2,000 UNIT TABLET PO SCH (09:00)
[2021-07-16] MEDS: D5NS 1,000 ML IV SCH ×2 (10:00→15:54)
[2021-07-16 10:16] LABS: ERYTHROCYTE SEDIMENTATION RATE 14 MM/HR (0-20)
--- NOTE | 2021-07-16 10:57 | NUR ---
pt p02 is 37 per ABG but pt ph is normal as is co2/pt refused to use I.S. and refused bipap, but pt ok with NRM over high flow/placed pt on 100% NRM/o2 sat instantly got better/pt doing foot exercises in bed and still refusing intubation unless she becomes obtunded/vs stable//pt remains alert and oriented x4//mw
[2021-07-16] MEDS: ENOXAPARIN SODIUM 40 MG/0.4 ML SYRINGE SUBCUT SCH ×2 (11:00→21:14)
--- NOTE | 2021-07-16 12:23 | NUR ---
pt daughter theo called requesting chat with about latest abg and low po2,pt did complain about sob this a.m. but now onn high flow plus nc, pt states feels better and not sob, but paged Vik as per pt daughter request and gave md venegas phone number/message/orders taken.///mw
--- NOTE | 2021-07-16 13:18 | NUR ---
Nutrition F/U RD reviewed pt's current EMR record including diet Hx, physician notes, nursing notes, pertinent labs/meds/procedures, care trends, and care activity. Admission Dx: COVID, pneumonia PMH: asthma, hypothyroidism, endometrial CA s/p hysterectomy in the past per physician notes Pt was also found w/ sepsis per physician notes 07/11 MD notes: Leukocytosis SARS-CoV-2 Ag (Rapid) Positive 07/02 Current Diet Order/Nutrition Support: Cardiac, mechanical soft, soft, finely chopped diet w/ Ensure Enlive TID x 10 days Subjective Info: Pt is in COVID isolation and RD bedside visit was deferred. Pt was seen in ICU through glass door/window. Per EMR review, pt completed remdesivir, very awake and alert, is on HFNC, continues w/ poor oxygenation. Pt has been refusing BiPAP and intubation. Abdomen is soft and nondistended w/ active bowel sounds, BM 07/16 x1. Landry scale: 16, pale skin color per RN notes, no skin issues/edema documented. PO intake records show pt w/ poor PO intake (25% average of 3 breakfast for the past 3 days, no lunch and dinner intake recorded). RN was busy providing care to other pt's during RD rounds to unit. This RD was unable to assess oral intake adequacy. Pertinent Medications: colace, lovenox, zinc, VIT C, VIT D2, synthroid, Decadron, D5% NS IV at 100ml/hr (408 kcal/day), K-dur, Zofran Pertinent Labs: 07/16 WBC 12.8 H, Na 128 L, K 3.3L, BG 94 WNL, BUN 12 WNL, Cre 0.55WNL. Height: 5'6" Weight: 169#/ 76.6 kg (07/05) --stable Body Mass Index: 27.27 kg/m2 [place]/Adjusted Body Weight: 130#/59 kg. Adj IBW (obesity): 140#/64 kg Estimated Energy Expenditure (kcals/day) 3733-2769 kcal/day (30-35 kcal/kg Adj IBW d/t sepsis) Estimated Protein Required (g/day) 77-96 gm/day (1.2-1.5 gm/kg Adj IBW d/t sepsis) Estimated Fluid Required (l/day) 1.9-2.3 L/day (25-30 ml/kg CBW d/t geriatric maintenance) Problem/Etiology/Signs/Symptoms Increased nutritional needs related to metabolic demands as evidenced by estimated nutritional requirements for acute state. *ongoing Inadequate protein-calorie intake r/t respiratory dysfunction AEB PO intake meets <75% of estimated calorie and protein needs. (*new 07/16) Expected Outcomes/Goals - Monitor appetite and PO intakes w/ goal of pt meeting at least 80% of estimated nutritional needs, labs trending WNL, normal GI function, and skin integrity/wt maintenance Dietitian Recommendations * Recommend continuing cardiac, mechanical soft, soft, finely chopped diet w/ Ensure Enlive TID (ONS provides 1050 kcal/day, 60 gm protein/day) * Maximum encouragement q meal * Please document all PO intake. Follow Up High Risk: F/U in 2-3 days
--- NOTE | 2021-07-16 13:24 | NUR ---
Dietitian Recommendations * Recommend continuing cardiac, mechanical soft, soft, finely chopped diet w/ Ensure Enlive TID (ONS provides 1050 kcal/day, 60 gm protein/day) * Maximum encouragement q meal * Please document all PO intake. Please see Nutrition F/U note for details. KATIUSKA, RD
[2021-07-16] MEDS: ACETAMINOPHEN 325 MG TABLET PO PRN (14:15)
--- NOTE | 2021-07-16 15:47 | NUR ---
pt states would like a BLAND LIQUID DIET but no idea if it is carried here, tube bender has left for day/will discuss in a.m//pt still low sat but refusing PRONING, BIPAP, I.S. Advised pt again that she may need intubation, pt is A AND O X4 and stated NOT YET. encouraged pt to tryi.s. but pt refused/she said doesnt like the NRM mask but is tolerating it with the HIGH FLOW/o2 sat 88 max, 49 lowest today, again pt is an oriented adult//mw
[2021-07-16] MEDS: MONTELUKAST 10 MG TABLET PO SCH (17:01)
--- NOTE | 2021-07-16 20:00 | NUR ---
Spoke to patients daughterEsthela. Update given.
--- NOTE | 2021-07-16 20:45 | NUR ---
Patients family (daughter in law) here outside of room. Update given.
[2021-07-16] MEDS: TEMAZEPAM 15 MG CAPSULE PO PRN (21:13)
--- NOTE | 2021-07-16 22:32 | NUR ---
DR. PATEL HERE TO SEE PATIENT.
[2021-07-16] MEDS ORDERED: POTASSIUM CHLORIDE 20 MEQ TAB.PRT.SR PO ONE (23:45)
[2021-07-17] VITALS (31 sets, daily range): BP systolic 94–213
[2021-07-17] MEDS: D5NS 1,000 ML IV SCH ×2 (00:32→13:21)
[2021-07-17] MEDS: PIPERACILLIN/TAZO 2.25G/DEX-IS 50 ML IV SCH ×4 (00:32→17:50)
--- NOTE | 2021-07-17 00:45 | NUR ---
Patient informed on benefits and risks of proning in order to improve oxygenation status. Patient refused intervention at this time. Will reinforce education.
[2021-07-17] MEDS: ALBUTEROL MDI INHALATION 8 GM INH INH SCH ×4 (01:08→19:37)
--- NOTE | 2021-07-17 01:22 | NUR ---
DR. ROSS HERE TO SEE PATIENT.
--- NOTE | 2021-07-17 01:30 | NUR ---
RT at bedside explaining benefits of switching HI FLOW O2 to BIPAP, however patient refused intervention. Will re-educate patient on risks and benefits.
--- NOTE | 2021-07-17 03:00 | NUR ---
Patient agreeable to be placed on BIPAP. RT aware.
--- NOTE | 2021-07-17 06:00 | NUR ---
Spoke to patients daughter. Update given.
[2021-07-17] MEDS: DEXAMETHASONE SOD PHOSPHATE 10 MG/ML VIAL IVP SCH (06:34)
[2021-07-17] MEDS: LEVOTHYROXINE SODIUM 0.1 MG TABLET PO SCH (06:35)
[2021-07-17] MEDS: SUCRALFATE 1 GM TABLET PO SCH ×2 (06:36→17:49)
--- NOTE | 2021-07-17 07:09 | NUR ---
ENDORSEMENT Patient care endorsed to dayshift RN using nursing SBAR.
--- NOTE | 2021-07-17 07:30 | NUR ---
Recv report fr Shoshana fuller, patient is getting too tired now between hi flow and bipap, when patient is on bipap her o2 sat is 57% to 64% , on Hi flow same o2 sat, spoke with patient she is desiree confused, confirm with her if she wanted to be intubated, her answer was " how are you going to do that " , patient could not make sajan sense. i ve contacted the daughter, theo sims, she said whe confirmed with her family, they wanted intubation. called e.r. for intubation.
--- NOTE | 2021-07-17 07:50 | NUR ---
E.r doct mejía came patient is given 10 mg etomidate and 100 mg succynilcholine, patient 7.5 + 24, ac 24, tv 400, fiow 100, +5 will do abg in 1 hr, and will closely monitor the patient.
--- NOTE | 2021-07-17 08:38 | NUR ---
PHYSICAL THERAPY CO-SIGN The Physical Therapy Progress Notes documented by Rehabilitation Therapy Technician have been reviewed. Reviewed/Co-Signed by: Bernardo Pretty Documentation Done by: BERLIN REDDY PTA Addendum: 07/17/21 at 0840 by Bernardo Pretty PT Amended: Links added.
--- NOTE | 2021-07-17 08:39 | NUR ---
PHYSICAL THERAPY CO-SIGN The Physical Therapy Progress Notes documented by [employer] have been reviewed. Reviewed/Co-Signed by: Bernardo Pretty Documentation Done by: JOSIAH WEBSTER PTA Addendum: 07/17/21 at 0840 by Bernardo Pretty PT Amended: Links added.
[2021-07-17] MEDS: DILTIAZEM HCL 240 MG CAP.SR.24H PO SCH (09:00)
[2021-07-17] MEDS: hydrALAZINE HCL 25 MG TABLET PO SCH ×2 (09:00→21:00)
[2021-07-17] MEDS: LOSARTAN POTASSIUM 50 MG TABLET (COZAAR) PO SCH (09:00)
[2021-07-17] MEDS: HYDROCHLOROTHIAZIDE 25 MG TABLET (HCTZ) PO SCH ×2 (09:00→21:00)
[2021-07-17] MEDS: POTASSIUM CHLORIDE 10 MEQ TAB.PRT.SR PO SCH ×2 (09:00→21:30)
[2021-07-17 09:31] LABS: PROTHROMBIN TIME 10.1 SECS (9.5-12.5)
--- NOTE | 2021-07-17 10:00 | NUR ---
REPORTED ABG RESULT TO DR PATEL, ALSO UPDATED PATIENTS DAUGHTER ABOUT PATIENT'S CONDITION, PATIENT STILL SATURATES IN THE 70'S , PROPOFOL MAXED OUT TO 50 MCG, PATIENT REMAINS AROUSABLE Changed settings to prvc 32, tv 400, fio2 100% , peep +7, we will do abg in 2 hours, Samantha anderson , received all orders from dr Patel.
[2021-07-17] MEDS ORDERED: POTASSIUM CHLORIDE 20 MEQ/PKT PACKET PO ONE (10:15)
[2021-07-17] MEDS: PROPOFOL DRIP 100 ML IV PRN ×4 (10:15→23:12)
[2021-07-17 10:37] LABS: ANION GAP 8 (5-15); CALCIUM 8.7 mg/dL (8.4-11.0); CHLORIDE 96 mmol/L (98-107); CREATININE 0.71 mg/dL (0.55-1.30); GLUCOSE 259 mg/dL (70-99); POTASSIUM 4.3 mmol/L (3.5-5.1); SODIUM SERUM 129 mmol/L (136-145); UREA NITROGEN, BLOOD 17 mg/dL (8-21)
[2021-07-17 10:42] LABS: ALANINE AMINOTRANSFERASE 28 U/L (12-78); ALBUMIN 2.5 g/dL (3.4-4.8); ASPARTATE AMINOTRANSFERASE 35 U/L (10-37); TOTAL BILIRUBIN 0.5 mg/dL (0.0-1.0)
[2021-07-17 10:44] LABS: EOSINOPHILS # (AUTO) 0.1 K/uL (0.0-0.4); EOSINOPHILS % (AUTO) 0.3 % (0.0-4.0); LYMPHOCYTES # (AUTO) 1.9 K/uL (1.0-5.5); MONOCYTES # (AUTO) 1.1 K/uL (0.0-1.0)
[2021-07-17 11:08] LABS: BASOPHILS # (AUTO) 0.1 K/uL (0.0-0.2); BASOPHILS % (AUTO) 0.2 % (0.0-2.0); HEMATOCRIT 39.4 % (36-48); HEMOGLOBIN 13.1 g/dL (12.0-16.0); LYMPHOCYTES % (AUTO) 5.5 % (20.5-51.5); MEAN CORPUSCULAR HEMOGLOBIN 28 pg (27-31); MEAN CORPUSCULAR HGB CONC 33 % (32-36); MEAN CORPUSCULAR VOLUME 83 fL (79.0-98.0); MONOCYTES % (AUTO) 3.1 % (1.7-9.3); NEUTROPHILS # (AUTO) 30.8 K/uL (1.8-7.7); PLATELET COUNT (AUTO) 431 K/uL (130-430); RED BLOOD CELL COUNT(AUTO) 4.74 MIL/uL (4.2-6.2); RED CELL DISTRIBUTION WIDTH 14.8 % (9.0-15.0)
[2021-07-17 11:21] LABS: WHITE BLOOD COUNT (AUTO) 33.9 K/uL (4.8-10.8)
--- NOTE | 2021-07-17 12:00 | NUR ---
Patients daughter Monique called, i ve given her an update , Abg slightly better, also obtained an consent for PICC line placement, patient otherwise still very critical, blood pressure stable, but o2 sat still remains in 70% , propofol at max dose of 50 mcg, i will continue to monitor the patient.
[2021-07-17] MEDS: DOCUSATE SODIUM 100 MG CAPSULE PO SCH ×2 (12:58→21:29)
[2021-07-17] MEDS: CELECOXIB 200 MG CAPSULE PO SCH ×2 (12:58→21:29)
[2021-07-17] MEDS: ASCORBIC ACID 500 MG TABLET PO SCH ×2 (12:58→21:30)
[2021-07-17] MEDS: PANTOPRAZOLE SODIUM 40 MG/VIAL (PROTONIX) IVP SCH (12:59)
[2021-07-17] MEDS: CITALOPRAM HYDROBROMIDE 20 MG TABLET PO SCH (12:59)
[2021-07-17] MEDS: ASPIRIN 325 MG TABLET PO SCH (13:01)
[2021-07-17] MEDS: CHOLECALCIFEROL (VITAMIN D3) 2,000 UNIT TABLET PO SCH (13:02)
[2021-07-17] MEDS: SIMVASTATIN 40 MG TABLET PO SCH (13:06)
[2021-07-17] MEDS: ENOXAPARIN SODIUM 40 MG/0.4 ML SYRINGE SUBCUT SCH ×2 (13:16→21:31)
[2021-07-17] MEDS ORDERED: SODIUM BICARBONATE 8.4% JECT 50 MEQ/50 ML SYRINGE IVP ONE (13:30)
--- NOTE | 2021-07-17 14:00 | NUR ---
Dr. Santos called and given him the last abg results, He said that it is fine, the ph is better at 7.27, he also wanted to get the abg numers to relay to patient's daughter. Barbara already spoken with the daughter Monique to give her update about her mom.
[2021-07-17 14:40] LABS: NEUTROPHILS % (AUTO) 90.9 % (40.0-70.0)
[2021-07-17] MEDS ORDERED: NALOXONE HCL 0.4 MG/ML AMP (NARCAN) IVP PRN (15:30)
[2021-07-17] MEDS ORDERED: ETOMIDATE 20 MG/ 10 ML VIAL (AMIDATE) IVP ONE (17:15)
[2021-07-17] MEDS ORDERED: ROCURONIUM BROMIDE 10 MG/ML (ZEMURON) IV ONE (17:15)
[2021-07-17] MEDS: MONTELUKAST 10 MG TABLET PO SCH (17:49)
--- NOTE | 2021-07-17 19:25 | NUR ---
PM SHIFT ASSESSMENT Patient is sedated on the vent. SR on monitor. Skin warm and dry. IVF infusing to GERARDO PICCLINE. NG tube in place. Escoto catheter in place and draining to gravity. Safety precautions in place, call light within reach. Will continue to monitor.
--- NOTE | 2021-07-17 20:00 | NUR ---
Family visiting outside of patients room, update given.
[2021-07-18] VITALS (27 sets, daily range): BP systolic 94–156
[2021-07-18] MEDS: PIPERACILLIN/TAZO 2.25G/DEX-IS 50 ML IV SCH ×5 (00:29→23:57)
[2021-07-18] MEDS: MORPHINE SULFATE IN 0.9 % NACL 100 ML IV PRN (03:33)
[2021-07-18] MEDS: PROPOFOL DRIP 100 ML IV PRN ×4 (03:35→18:21)
[2021-07-18] MEDS: ALBUTEROL MDI INHALATION 8 GM INH INH SCH ×4 (03:44→20:13)
[2021-07-18] MEDS: DEXAMETHASONE SOD PHOSPHATE 10 MG/ML VIAL IVP SCH (07:01)
[2021-07-18] MEDS: SUCRALFATE 1 GM TABLET PO SCH ×2 (07:01→18:12)
[2021-07-18] MEDS: LEVOTHYROXINE SODIUM 0.1 MG TABLET PO SCH (07:01)
--- NOTE | 2021-07-18 07:29 | NUR ---
ENDORSEMENT Patient care endorsed to parvez SANCHEZ.
--- NOTE | 2021-07-18 08:00 | NUR ---
INCREASED HR/DECREASED BP LEVOPHED INITIATED PER ORDER DR. DUDLEY UPDATED. STAT EKG, CARDIAC CONSULT ORDERED
[2021-07-18] MEDS: LOSARTAN POTASSIUM 50 MG TABLET (COZAAR) PO SCH ×2 (09:00→09:53)
[2021-07-18] MEDS: HYDROCHLOROTHIAZIDE 25 MG TABLET (HCTZ) PO SCH ×3 (09:00→21:14)
[2021-07-18] MEDS: CELECOXIB 200 MG CAPSULE PO SCH ×2 (09:00→21:12)
[2021-07-18] MEDS: CITALOPRAM HYDROBROMIDE 20 MG TABLET PO SCH ×2 (09:00→09:53)
[2021-07-18] MEDS: hydrALAZINE HCL 25 MG TABLET PO SCH ×2 (09:00→21:00)
[2021-07-18 09:05] LABS: BASOPHILS % (AUTO) 0.1 % (0.0-2.0); EOSINOPHILS % (AUTO) 0.2 % (0.0-4.0); HEMATOCRIT 28.9 % (36-48); HEMOGLOBIN 9.6 g/dL (12.0-16.0); LYMPHOCYTES # (AUTO) 0.5 K/uL (1.0-5.5); LYMPHOCYTES % (AUTO) 2.9 % (20.5-51.5); MEAN CORPUSCULAR HEMOGLOBIN 27 pg (27-31); MEAN CORPUSCULAR HGB CONC 33 % (32-36); MEAN CORPUSCULAR VOLUME 83 fL (79.0-98.0); MONOCYTES # (AUTO) 0.6 K/uL (0.0-1.0); NEUTROPHILS # (AUTO) 14.6 K/uL (1.8-7.7); NEUTROPHILS % (AUTO) 92.8 % (40.0-70.0); PLATELET COUNT (AUTO) 215 K/uL (130-430); RED BLOOD CELL COUNT(AUTO) 3.49 MIL/uL (4.2-6.2); RED CELL DISTRIBUTION WIDTH 14.7 % (9.0-15.0); WHITE BLOOD COUNT (AUTO) 15.7 K/uL (4.8-10.8)
--- NOTE | 2021-07-18 09:16 | NUR ---
CONSULT CARDIO. CONSULTING MD: Krista ALTMAN PERSON NOTIFIED: TANA DIALED: [phone] ORDERED BY: Kiran ALTMAN
[2021-07-18] MEDS: PANTOPRAZOLE SODIUM 40 MG/VIAL (PROTONIX) IVP SCH (09:52)
[2021-07-18] MEDS: DOCUSATE SODIUM 100 MG CAPSULE PO SCH ×2 (09:53→21:12)
[2021-07-18] MEDS: ASCORBIC ACID 500 MG TABLET PO SCH ×2 (09:53→21:15)
[2021-07-18] MEDS: POTASSIUM CHLORIDE 10 MEQ TAB.PRT.SR PO SCH ×2 (09:54→21:14)
[2021-07-18] MEDS: DILTIAZEM HCL 240 MG CAP.SR.24H PO SCH (09:54)
[2021-07-18] MEDS: ASPIRIN 325 MG TABLET PO SCH (09:54)
[2021-07-18] MEDS: CHOLECALCIFEROL (VITAMIN D3) 2,000 UNIT TABLET PO SCH (09:54)
[2021-07-18] MEDS: ENOXAPARIN SODIUM 40 MG/0.4 ML SYRINGE SUBCUT SCH ×2 (09:55→21:16)
[2021-07-18] MEDS: SIMVASTATIN 40 MG TABLET PO SCH (09:55)
[2021-07-18] MEDS: NOREPINEPHRINE BITARTRATE 4 MG in D5W 246 ML IV PRN ×2 (09:57→18:28)
[2021-07-18 10:07] LABS: ERYTHROCYTE SEDIMENTATION RATE 33 MM/HR (0-20)
[2021-07-18] MEDS ORDERED: NOREPINEPHRINE 4 MG/4 ML VIAL IV ONE (10:43)
[2021-07-18 10:45] LABS: ANION GAP 12 (5-15); CALCIUM 8.4 mg/dL (8.4-11.0); CHLORIDE 96 mmol/L (98-107); CREATININE 0.87 mg/dL (0.55-1.30); GLUCOSE 252 mg/dL (70-99); POTASSIUM 4.4 mmol/L (3.5-5.1); SODIUM SERUM 130 mmol/L (136-145); TOTAL BILIRUBIN 0.4 mg/dL (0.0-1.0); UREA NITROGEN, BLOOD 23 mg/dL (8-21)
--- NOTE | 2021-07-18 10:45 | NUR ---
CARDIAC CONSULT DR Carlton DUDLEY AT BEDSIDE NEW ORDERS RECEIVED
[2021-07-18 10:46] LABS: ALANINE AMINOTRANSFERASE 26 U/L (12-78); ALBUMIN 1.7 g/dL (3.4-4.8); ASPARTATE AMINOTRANSFERASE 33 U/L (10-37)
[2021-07-18 14:38] LABS: C-REACTIVE PROTEIN QUANT 12.4 mg/dL (0-0.5)
--- NOTE | 2021-07-18 15:14 | NUR ---
Chart reviewed. hold PT treatment per RN recommendation due to poor medical status
[2021-07-18] MEDS: MONTELUKAST 10 MG TABLET PO SCH (18:12)
[2021-07-18] MEDS: D5NS 1,000 ML IV SCH (18:18)
--- NOTE | 2021-07-18 20:00 | NUR ---
ORALLY INTUBATED. SUCTIONED WITH MODERATE THICK WHITE MUCUS OBTAINED. ORAL CARE GIVEN. RIGHT NARES NGT CLAMPED. GERARDO PICC LINE ANGIE D/I. ON PROPOFOL AT 40 MCG/KG/MIN, MORPHINE AT 2 MG/HR, LEVOPHED AT 0.1 MCG/KG/MIN. , D5NS AT 40CC/HR. FERNANDO CATH PATENT DRAINING CLEAR YELLOW URINE TO GRAVITY. ANU SOFT WRIST RESTRAINTS ON FOR SAFETY. SR W/ LBBB. DR ROSS HERE, NO NEW ORDERS GIVEN.
--- NOTE | 2021-07-18 20:30 | NUR ---
DAUGHTER FROM [place] HERE WITH BANKING SERVICES ADVISOR VISITING. QUESTIONS ANSWERED.
[2021-07-18] MEDS ORDERED: CELECOXIB 200 MG CAPSULE ONE (21:11)
--- NOTE | 2021-07-18 22:00 | NUR ---
HS CARE GIVEN. DR PATEL HERE, SEEN PT. NEW ORDERS TO BE IMPLEMENTED.
[2021-07-19] VITALS (28 sets, daily range): BP systolic 96–140
--- NOTE | 2021-07-19 | NUR ---
SUCTIONED. ORAL CARE. PROPOFOL DRIP TITRATED DOWN TO 35 MCG/KG/MIN. PULSES PALPABLE.
[2021-07-19] MEDS: ALBUTEROL MDI INHALATION 8 GM INH INH SCH ×4 (00:10→19:19)
--- NOTE | 2021-07-19 02:00 | NUR ---
OPENS EYES SPON. REPOSITIONED. CIRCULATION CHECK DONE.
[2021-07-19] MEDS: PROPOFOL DRIP 100 ML IV PRN ×3 (02:22→23:43)
[2021-07-19] MEDS: NOREPINEPHRINE BITARTRATE 4 MG in D5W 246 ML IV PRN (02:25)
--- NOTE | 2021-07-19 04:00 | NUR ---
SUCTIONED. TURNED. ORAL CARE GIVEN. CHG BATH DONE. BACK CARE, Z-GUARD TO PERINEUM, SKIN CARE RENDERED. FERNANDO CARE GIVEN. PARTIAL LINEN CHANGE. DOES NOT ASSIST WITH TURNING. JASSI PROC WELL. PULSES PALPABLE.
--- NOTE | 2021-07-19 06:00 | NUR ---
SUCTIONED AND TURNED Q2 HRS AND PRN. UO GOOD. REMAINS IN GUARDED CONDITION.
[2021-07-19] MEDS: PIPERACILLIN/TAZO 2.25G/DEX-IS 50 ML IV SCH (06:21)
[2021-07-19] MEDS: DEXAMETHASONE SOD PHOSPHATE 10 MG/ML VIAL IVP SCH (06:22)
[2021-07-19] MEDS: LEVOTHYROXINE SODIUM 0.1 MG TABLET PO SCH (06:23)
[2021-07-19] MEDS: SUCRALFATE 1 GM TABLET PO SCH ×2 (06:23→17:42)
--- NOTE | 2021-07-19 07:00 | NUR ---
Recv report fr Denzel fuller, patient was stable all night, she is currently sedated with 35 mcg of Propofol, 2 mg of Morphine, patient is comfortable with current sedations, telemetry shows sr, ngt clamped, f/c to gravity, skin is pale, warm , i will continue nursing care and interventions.
[2021-07-19] MEDS: PANTOPRAZOLE SODIUM 40 MG/VIAL (PROTONIX) IVP SCH (08:22)
[2021-07-19] MEDS: hydrALAZINE HCL 25 MG TABLET PO SCH ×2 (08:23→21:00)
[2021-07-19] MEDS: ASPIRIN 325 MG TABLET PO SCH (08:26)
[2021-07-19] MEDS: DILTIAZEM HCL 240 MG CAP.SR.24H PO SCH (08:26)
[2021-07-19] MEDS: CELECOXIB 200 MG CAPSULE PO SCH ×2 (08:28→21:42)
[2021-07-19] MEDS: CITALOPRAM HYDROBROMIDE 20 MG TABLET PO SCH (08:28)
[2021-07-19] MEDS: ASCORBIC ACID 500 MG TABLET PO SCH ×2 (08:29→21:45)
[2021-07-19] MEDS: POTASSIUM CHLORIDE 10 MEQ TAB.PRT.SR PO SCH ×2 (08:29→21:45)
[2021-07-19] MEDS: DOCUSATE SODIUM 100 MG CAPSULE PO SCH ×2 (08:29→21:43)
[2021-07-19] MEDS: LOSARTAN POTASSIUM 50 MG TABLET (COZAAR) PO SCH (08:29)
[2021-07-19] MEDS: SIMVASTATIN 40 MG TABLET PO SCH (08:30)
[2021-07-19] MEDS: HYDROCHLOROTHIAZIDE 25 MG TABLET (HCTZ) PO SCH ×2 (08:31→21:45)
[2021-07-19] MEDS: CHOLECALCIFEROL (VITAMIN D3) 2,000 UNIT TABLET PO SCH (08:31)
[2021-07-19] MEDS: ENOXAPARIN SODIUM 40 MG/0.4 ML SYRINGE SUBCUT SCH ×2 (08:34→21:46)
--- NOTE | 2021-07-19 10:00 | NUR ---
Patient recv breathing treatments, ventilaor stays at current settings of prvc 32, tv 400, fio2 100%, +5, patient has minimal secretions, patient O2 sat at 96%, turned and repositioned the patient, will keep patient's comfort...i will cotninue to provide care.
[2021-07-19] MEDS: D5NS 1,000 ML IV SCH (11:13)
--- NOTE | 2021-07-19 12:00 | NUR ---
Patient's family came, all 3 kids came to see the patient, Natalie the primary cotnact who is a physician, requested to talk to Dr. Santos, because she said she hasn't spoken with him for at least 4 days, she wanted an upddate fr dr santos. jory told her that i will paged dr santos and have him call her. Patient with no changes, i will continue to monitor the patient.
--- NOTE | 2021-07-19 14:00 | NUR ---
Turned and repositioned the patient, did a sedation vacation, patient is able to wake up and understood simple question by nodding her head, vitals sign stable, Levophed still infuisng at 0.1 mcg. i will titrate what i can and provide comfort.
--- NOTE | 2021-07-19 14:50 | NUR ---
Nutrition F/U RD reviewed pt's current EMR record including diet Hx, physician notes, nursing notes, pertinent labs/meds/procedures, care trends, and care activity. Admission Dx: COVID, pneumonia PMH: asthma, hypothyroidism, endometrial CA s/p hysterectomy in the past per physician notes Pt was also found w/ sepsis per physician notes 07/11 MD notes: Leukocytosis SARS-CoV-2 Ag (Rapid) Positive 07/02 Current Diet Order/Nutrition Support: NPO x1 day Subjective Info: Pt is in COVID isolation and RD bedside visit was deferred. Pt was seen in ICU through glass door/window. RN reported that pt was intubated 07/17, and no physician orders have been made to start EN support. Per EMR review, pt's NGT is clamped; abd is soft w/ active bowel sounds; no BM since 07/18; Landry scale: 13, no skin issues noted. Pt is not meeting nutritional needs and is at increased risk for malnutrition. Pertinent Medications: colace, lovenox, zinc, VIT C, VIT D2, synthroid, decadron, k-dur, zofran, propofol at 16.098 ml/hr (425 kcal/day) Pertinent Labs: 07/18: WBC 15.7 H, Na 134 L, K 4.4 WNL, BG 131 H, BUN 20 WNL, CRE 0.54 L Height: 5'6" Weight: 169#/ 76.6 kg (07/05) -- stable Body Mass Index: 27.27 kg/m2 (normal for geriatric age) [place]/Adjusted Body Weight: 130#/59 kg. Adj IBW (obesity): 140#/64 kg NEW Estimated Energy Expenditure (kcals/day) -- RD unable to calculate PSU equation as Ve was not able to be retrieved via EMR 8205-4174 kcal/day (25-30 kcal/kg IBW d/t critical care, intubated on vent) Estimated Protein Required (g/day) 77-96 gm/day (1.2-1.5 gm/kg Adj IBW d/t sepsis) Estimated Fluid Required (l/day) 1.9-2.3 L/day (25-30 ml/kg CBW d/t geriatric maintenance) Problem/Etiology/Signs/Symptoms Increased nutritional needs related to metabolic demands as evidenced by estimated nutritional requirements for acute state. *ongoing Inadequate protein-calorie intake r/t respiratory dysfunction AEB PO intake meets <75% of estimated calorie and protein needs. *ongoing Expected Outcomes/Goals - Monitor appetite and PO intakes w/ goal of pt meeting at least 80% of estimated nutritional needs, labs trending WNL, normal GI function, and skin integrity/wt maintenance Dietitian Recommendations * Recommend initiation of EN support -- Vital AF 1.2 at 55 ml/hr (goal rate), Provides: 1584 kcal/day, 99 gm protein/day, 1071 ml free water/day Meets: 107% of lower end of estimated caloric needs and 103% of upper end of estimated protein needs Follow Up High Risk: F/U in 2-3 days Addendum: 07/20/21 at [address] CORRECTION: Dietitian Recommendations * Recommend initiation of EN support -- Vital AF 1.2 at 55 ml/hr (goal rate), Free Water Flush: 200 ml Q6h via NGT Provides: 1584 kcal/day, 99 gm protein/day, 1871 ml free water/day Meets: 107% of lower end of estimated caloric needs and 103% of upper end of estimated protein needs Addendum: 07/20/21 at [address] Nutrition Consult received for TF recommendation 07/20/21 0847
--- NOTE | 2021-07-19 14:55 | NUR ---
Dietitian Recommendations * Recommend initiation of EN support -- Vital AF 1.2 at 55 ml/hr (goal rate), Provides: 1584 kcal/day, 99 gm protein/day, 1071 ml free water/day Meets: 107% of lower end of estimated caloric needs and 103% of upper end of estimated protein needs LP, RD Please refer to Nutrition F/U for details. Addendum: 07/20/21 at [address] CORRECTION: Dietitian Recommendations * Recommend initiation of EN support -- Vital AF 1.2 at 55 ml/hr (goal rate), Free Water Flush: 200 ml Q6h via NGT Provides: 1584 kcal/day, 99 gm protein/day, 1871 ml free water/day Meets: 107% of lower end of estimated caloric needs and 103% of upper end of estimated protein needs
--- NOTE | 2021-07-19 16:00 | NUR ---
Patient is sedated all day, Titrated propofol down to 30 mcg, patient is deeply sedated, Morphine still infusing at 2 mg/hr. urine output adequate, patient remains npo, i will relay to the doctor about feeding the patient.
[2021-07-19] MEDS: MONTELUKAST 10 MG TABLET PO SCH (17:42)
--- NOTE | 2021-07-19 18:00 | NUR ---
All nursing care and issues all have been patient was stalbe all shift, family updated today, i will endorse care to electric motor control assembler nurse.
--- NOTE | 2021-07-19 20:00 | NUR ---
ORALLY INTUBATED. SUCTIONED WITH SMALL AMOUNT OF THIN WHITE MUCUS OBTAINED. ORAL CARE GIVEN. AUN SOFT WRIST RESTRAINTS ON FOR SAFETY. ON LEVOPHED AT 0.05 MCG/KG/MIN, DIPRIVAN AT 30 MCG/KG/MIN, MORPHINE DRIP AT 2 MG/HR. FERNANDO CATH PATENT DRAINING CLOUDY TREY URINE TO GRAVITY.
--- NOTE | 2021-07-19 20:40 | NUR ---
DR PATEL HERE, ORDERED TO TITRATE MORPHINE DRIP TO 1 MG/HR, CARRIED OUT. DR PATEL ALSO TALKED TO DAUGHTER CHELSY VIA PHONE.
[2021-07-19] MEDS ORDERED: ENOXAPARIN SODIUM 40 MG/0.4 ML SYRINGE ONE (21:50)
[2021-07-19] MEDS: MORPHINE SULFATE IN 0.9 % NACL 100 ML IV PRN (22:10)
--- NOTE | 2021-07-19 22:45 | NUR ---
DIPRIVAN INCREASED TO 35 MCG/KG/MIN. HS CARE DONE.
[2021-07-20] VITALS (30 sets, daily range): BP systolic 92–185
[2021-07-20] MEDS ORDERED: NOREPINEPHRINE 4 MG/4 ML VIAL IV ONE (01:58)
[2021-07-20] MEDS: NOREPINEPHRINE BITARTRATE 4 MG in D5W 246 ML IV PRN (02:05)
--- NOTE | 2021-07-20 03:00 | NUR ---
CHG BATH GIVEN. ORAL CARE, RONAK-CARE, FERNANDO CARE, BACK CARE DONE. Z-GUARD APPLIED TO PERINEUM, SKIN CARE RENDERED. PARTIAL LINEN CHANGE. DOES NOT ASSIST WITH TURNING. JASSI PROC WELL.
--- NOTE | 2021-07-20 04:00 | NUR ---
SUCTIONED. PULSES PALPABLE. BOUTS OF RESTLESSNESS THEN DESATURATES, DIPRIVAN INCREASED TO 40 MCG/KG/MIN.
[2021-07-20] MEDS: PROPOFOL DRIP 100 ML IV PRN ×2 (05:49→10:02)
[2021-07-20] MEDS: ALBUTEROL MDI INHALATION 8 GM INH INH SCH ×3 (06:00→19:43)
--- NOTE | 2021-07-20 06:00 | NUR ---
SUCTIONED AND TURNED Q2 HRS AND PRN. UO GOOD. PROPOFOL AT 40 MCG/KG/MIN, LEVOPHED AT 0.05 MCG/KG/MIN , MORPHINE DRIP AT 1 MG/HR. REMAINS IN GUARDED CONDITION.
[2021-07-20] MEDS: DEXAMETHASONE SOD PHOSPHATE 10 MG/ML VIAL IVP SCH (06:02)
[2021-07-20] MEDS: SUCRALFATE 1 GM TABLET PO SCH ×2 (06:03→17:55)
[2021-07-20] MEDS: LEVOTHYROXINE SODIUM 0.1 MG TABLET PO SCH (06:03)
[2021-07-20 06:26] LABS: BASOPHILS % (AUTO) 0.1 % (0.0-2.0); EOSINOPHILS % (AUTO) 0.2 % (0.0-4.0); HEMATOCRIT 30.8 % (36-48); HEMOGLOBIN 10.1 g/dL (12.0-16.0); LYMPHOCYTES # (AUTO) 0.6 K/uL (1.0-5.5); LYMPHOCYTES % (AUTO) 4.1 % (20.5-51.5); MEAN CORPUSCULAR HEMOGLOBIN 27 pg (27-31); MEAN CORPUSCULAR HGB CONC 33 % (32-36); MEAN CORPUSCULAR VOLUME 83 fL (79.0-98.0); MONOCYTES # (AUTO) 0.8 K/uL (0.0-1.0); NEUTROPHILS # (AUTO) 14.2 K/uL (1.8-7.7); NEUTROPHILS % (AUTO) 90.6 % (40.0-70.0); PLATELET COUNT (AUTO) 253 K/uL (130-430); RED BLOOD CELL COUNT(AUTO) 3.71 MIL/uL (4.2-6.2); RED CELL DISTRIBUTION WIDTH 14.9 % (9.0-15.0); WHITE BLOOD COUNT (AUTO) 15.7 K/uL (4.8-10.8)
[2021-07-20 06:38] LABS: ALANINE AMINOTRANSFERASE 23 U/L (12-78); ALBUMIN 1.8 g/dL (3.4-4.8); ANION GAP 4 (5-15); ASPARTATE AMINOTRANSFERASE 29 U/L (10-37); CALCIUM 8.7 mg/dL (8.4-11.0); CHLORIDE 102 mmol/L (98-107); CREATININE 0.54 mg/dL (0.55-1.30); GLUCOSE 131 mg/dL (70-99); PHOSPHORUS 3.2 mg/dL (2.7-4.5); POTASSIUM 4.4 mmol/L (3.5-5.1); SODIUM SERUM 134 mmol/L (136-145); TOTAL BILIRUBIN 0.2 mg/dL (0.0-1.0); UREA NITROGEN, BLOOD 20 mg/dL (8-21)
[2021-07-20 07:03] LABS: C-REACTIVE PROTEIN QUANT 3.4 mg/dL (0-0.5)
--- NOTE | 2021-07-20 08:00 | NUR ---
Recv report fr Denzel fuller, patient remains on Propofol at 40 mcg, Morphine at 1 mg/hr, patient does wake up when propofol on hold, telemetry shows sr, no changes on vent settings, i will continue nursing care and interventiosn.
[2021-07-20] MEDS: ALBUTEROL MDI INHALATION 8 GM INH INH PRN (08:13)
[2021-07-20] MEDS: DOCUSATE SODIUM 100 MG CAPSULE PO SCH ×2 (09:35→23:56)
[2021-07-20] MEDS: ASPIRIN 325 MG TABLET PO SCH (09:35)
[2021-07-20] MEDS: CHOLECALCIFEROL (VITAMIN D3) 2,000 UNIT TABLET PO SCH (09:35)
[2021-07-20] MEDS: PANTOPRAZOLE SODIUM 40 MG/VIAL (PROTONIX) IVP SCH (09:35)
[2021-07-20] MEDS: POTASSIUM CHLORIDE 10 MEQ TAB.PRT.SR PO SCH ×2 (09:36→22:30)
[2021-07-20] MEDS: CITALOPRAM HYDROBROMIDE 20 MG TABLET PO SCH (09:36)
[2021-07-20] MEDS: SIMVASTATIN 40 MG TABLET PO SCH (09:36)
[2021-07-20] MEDS: ASCORBIC ACID 500 MG TABLET PO SCH ×2 (09:36→23:56)
[2021-07-20] MEDS: ENOXAPARIN SODIUM 40 MG/0.4 ML SYRINGE SUBCUT SCH ×2 (09:39→21:00)
[2021-07-20] MEDS: CELECOXIB 200 MG CAPSULE PO SCH (09:40)
--- NOTE | 2021-07-20 10:00 | NUR ---
Patient is in bed sedated, bp supporte by Levophed at 0.05 mcg /kg/hr, sbp above 100's, Dr Rowdy Rader cardiologists came and said that to follow map above 65. i will monitor patient sbp closely and titrate Levophed according MAP.
--- NOTE | 2021-07-20 10:34 | NUR ---
PAGED PAGED BRIGHT [place] AT [phone] SPOKE WITH RAMON.
--- NOTE | 2021-07-20 10:42 | NUR ---
Given abg results to Dr. Santos, He said no changes, keep current vent settings.
[2021-07-20 11:08] LABS: ERYTHROCYTE SEDIMENTATION RATE 35 MM/HR (0-20)
[2021-07-20] MEDS: D5NS 1,000 ML IV SCH (11:13)
--- NOTE | 2021-07-20 11:48 | NUR ---
HOLD P.T. TREATMENT FOR TODAY PER NURSING (KALLI) DUE TO Pt NOT MEDICALLY APPROPRIATE AT THIS TIME.
--- NOTE | 2021-07-20 12:00 | NUR ---
Patient's family came Natalie Phillips came and given her update about pt's condition, she said she spoke with dr Santos last night, there is really no improvement with her respiratory status, daughter said they will wait until friday to make a decision if they will leave the ett on. jory said we will continue to care for the patient.
--- NOTE | 2021-07-20 14:00 | NUR ---
Turned and repositioned the patient, patients O2 sat improve to 94 to 95%, also turned off levophed drip as bp is stable, i will continue to monitor the patient.
--- NOTE | 2021-07-20 16:00 | NUR ---
Patient is in bed no changed in condition, propofol needs to keep infusing , witout the propofol patient desats to low 80% and very restless, safety maintained with bilateral wrist restrainsts, i will continue to monitor the patient.
[2021-07-20] MEDS: MONTELUKAST 10 MG TABLET PO SCH (17:55)
--- NOTE | 2021-07-20 18:00 | NUR ---
All nursing care and issues all have been addressed, i will endorse care to shift supervisor film processing nurse.
--- NOTE | 2021-07-20 21:00 | NUR ---
patient was accepted and assess done PATIENT IS ON PRVC MODE PRE VENT SAT 88-92 ALSO ON MANY SEDATION DRIP AND BLOOD PRESSURE MEDICATION SEE MAR, TUBE FEEDING OF VITAL AF , TOLERATE WELL WILL TRIED TO RAISED UPPER ARM IN SOFT WRIST RESTRAINT FOR PROTECTION DAUGHTER HAD ASK IF HER MON COULD PRONE DR DUDLEY WAS HERE TO SEEN THE PATIENT STAT THIS WAS OK WILL PLAN LATER ,STABLE
--- NOTE | 2021-07-20 23:00 | NUR ---
PATIENT WAS PREPARED TO PRONE , STABLE RT WAS HERE TO PROTEC THE PATIENT HEAD AND ORAL AIRWAY STABLE , PATIENT TURN AND TOLERATE WELL PATIENT BLOOD PRESSURE UP TO 194/80 HR 102SAT 88% VERSED DRIP WAS ADDED FOR MORE SEDATION , STABLE
[2021-07-21] VITALS (32 sets, daily range): BP systolic 95–172
[2021-07-21] MEDS: PROPOFOL DRIP 100 ML IV PRN ×4 (00:03→21:16)
[2021-07-21] MEDS: MIDAZOLAM IN NACL,ISO-OSMOT/PF 100 ML IV PRN ×2 (00:12→21:12)
--- NOTE | 2021-07-21 02:00 | NUR ---
PATIENT HAD TOLERATE THE PRONE POSITION WELL SEDATED NO CHANGES TO THE DIPRIVAN DRIP OR MORPHINE DRIP , STABLE , FERNANDO INTACT AND WORKING WELL NO NM WAS NOTICE , STABLE
[2021-07-21] MEDS: ALBUTEROL MDI INHALATION 8 GM INH INH SCH ×3 (06:00→19:36)
--- NOTE | 2021-07-21 06:00 | NUR ---
LEVOPHED DRIP DOWN TO 0.02 MCG/G/MIN , THE BP ELEVATED NEED TO WEAN THE DIPRIVAN DRIP OFF , STABLE PRONE MAINTAIN , STABLE WILL CONTINUED WITH PLAN OF CARE STABLE
[2021-07-21] MEDS: DEXAMETHASONE SOD PHOSPHATE 10 MG/ML VIAL IVP SCH (06:21)
[2021-07-21] MEDS: LEVOTHYROXINE SODIUM 0.1 MG TABLET PO SCH (06:21)
[2021-07-21] MEDS: CELECOXIB 200 MG CAPSULE PO SCH ×3 (06:23→21:49)
[2021-07-21] MEDS: SUCRALFATE 1 GM TABLET PO SCH ×2 (06:25→17:14)
[2021-07-21 07:34] LABS: BASOPHILS % (AUTO) 0.3 % (0.0-2.0); EOSINOPHILS # (AUTO) 0.3 K/uL (0.0-0.4); EOSINOPHILS % (AUTO) 2.5 % (0.0-4.0); HEMATOCRIT 30.9 % (36-48); HEMOGLOBIN 10.3 g/dL (12.0-16.0); LYMPHOCYTES # (AUTO) 0.8 K/uL (1.0-5.5); LYMPHOCYTES % (AUTO) 6.7 % (20.5-51.5); MEAN CORPUSCULAR HEMOGLOBIN 28 pg (27-31); MEAN CORPUSCULAR HGB CONC 33 % (32-36); MEAN CORPUSCULAR VOLUME 83 fL (79.0-98.0); MONOCYTES # (AUTO) 0.5 K/uL (0.0-1.0); MONOCYTES % (AUTO) 3.8 % (1.7-9.3); NEUTROPHILS # (AUTO) 11.1 K/uL (1.8-7.7); NEUTROPHILS % (AUTO) 86.7 % (40.0-70.0); PLATELET COUNT (AUTO) 214 K/uL (130-430); RED BLOOD CELL COUNT(AUTO) 3.73 MIL/uL (4.2-6.2); RED CELL DISTRIBUTION WIDTH 14.8 % (9.0-15.0); WHITE BLOOD COUNT (AUTO) 12.8 K/uL (4.8-10.8)
[2021-07-21] MEDS: CITALOPRAM HYDROBROMIDE 20 MG TABLET PO SCH (08:26)
[2021-07-21] MEDS: POTASSIUM CHLORIDE 10 MEQ TAB.PRT.SR PO SCH ×2 (08:26→21:46)
[2021-07-21] MEDS: ASPIRIN 325 MG TABLET PO SCH (08:26)
[2021-07-21] MEDS: CHOLECALCIFEROL (VITAMIN D3) 2,000 UNIT TABLET PO SCH (08:27)
[2021-07-21] MEDS: DOCUSATE SODIUM 100 MG CAPSULE PO SCH ×2 (08:27→21:46)
[2021-07-21] MEDS: PANTOPRAZOLE SODIUM 40 MG/VIAL (PROTONIX) IVP SCH (08:29)
[2021-07-21] MEDS: ENOXAPARIN SODIUM 40 MG/0.4 ML SYRINGE SUBCUT SCH ×2 (08:30→21:48)
[2021-07-21] MEDS: SIMVASTATIN 40 MG TABLET PO SCH (08:34)
[2021-07-21] MEDS: ASCORBIC ACID 500 MG TABLET PO SCH ×2 (08:35→21:47)
[2021-07-21 08:53] LABS: ANION GAP 5 (5-15); CALCIUM 8.5 mg/dL (8.4-11.0); CHLORIDE 102 mmol/L (98-107); CREATININE 0.49 mg/dL (0.55-1.30); GLUCOSE 97 mg/dL (70-99); PHOSPHORUS 2.9 mg/dL (2.7-4.5); POTASSIUM 3.9 mmol/L (3.5-5.1); SODIUM SERUM 136 mmol/L (136-145); UREA NITROGEN, BLOOD 19 mg/dL (8-21)
--- NOTE | 2021-07-21 10:22 | NUR ---
ON DUTY RECEIVED THIS PT ON VENT: AC 32-400-100%-12 ON SEDATION OF PROPOFOL 40MCG/KG/MIN, MORPHINE 1MG/HR, VERSED 4MG/HR AND LEVEPHED 0.2MCG/KG/MIN. VS STABLE, PT POSITIONED ON PRONE SINCE LAST NIGHT PER MINIATURE MODEL MAKER REQUESTED.
--- NOTE | 2021-07-21 10:47 | NUR ---
DR ASIF, STRAIGHT TRUCK DRIVER ASSESSED PT @10AM. PT'S INFO UPDATED TO HIM. NO NEW ORDER.
[2021-07-21] MEDS: D5NS 1,000 ML IV SCH ×2 (11:13→22:02)
--- NOTE | 2021-07-21 13:35 | NUR ---
KATRINA PLATA CAME IN TO VISIT PT. PT'S INFO UPDATED TO HER.
--- NOTE | 2021-07-21 15:00 | NUR ---
PT WAS TURNED TO SUPINE FROM PRONE WITH RT, EMY CHEEK RN. PERSONAL CARE OFFERED. LINEN CUOCH CHANGED. SL ON RIGHT WRIST WAS WOOZING OF BLOOD. REDNESS AND INFITRATED. SL WAS DC'D. DRY DRESSING APPLIED.
[2021-07-21] MEDS: MONTELUKAST 10 MG TABLET PO SCH (17:14)
[2021-07-21] MEDS: NOREPINEPHRINE BITARTRATE 4 MG in D5W 246 ML IV PRN (21:14)
[2021-07-22] VITALS (34 sets, daily range): BP systolic 97–173
[2021-07-22] MEDS: LEVOTHYROXINE SODIUM 0.1 MG TABLET PO SCH (05:36)
[2021-07-22] MEDS: DEXAMETHASONE SOD PHOSPHATE 10 MG/ML VIAL IVP SCH (05:36)
--- NOTE | 2021-07-22 06:00 | NUR ---
Sedation vacation done, approx 5 mins., started to fight vent & sbp > 170's, still does not open eyes, moving all 4 ext. weakly, follow simple commands, (+) weak cough & gag reflex, suction for moderate amt. thick yellow secretions via ett & orally, o2 sat > 92% with FIO2 @ 100 %, Diprivan drip @ 10mcg/min, Morphine drip @ 1 mg/hr, Versed drip @ 1 mg/hr, Levophed drip maintained @ 0.02mcg/min
[2021-07-22] MEDS: SUCRALFATE 1 GM TABLET PO SCH ×2 (06:31→18:42)
[2021-07-22 06:59] LABS: BASOPHILS % (AUTO) 0.1 % (0.0-2.0); EOSINOPHILS # (AUTO) 0.3 K/uL (0.0-0.4); EOSINOPHILS % (AUTO) 2.7 % (0.0-4.0); HEMATOCRIT 30.2 % (36-48); HEMOGLOBIN 10.2 g/dL (12.0-16.0); LYMPHOCYTES # (AUTO) 0.7 K/uL (1.0-5.5); MEAN CORPUSCULAR HEMOGLOBIN 27 pg (27-31); MEAN CORPUSCULAR HGB CONC 34 % (32-36); MEAN CORPUSCULAR VOLUME 82 fL (79.0-98.0); MONOCYTES # (AUTO) 0.5 K/uL (0.0-1.0); MONOCYTES % (AUTO) 4.6 % (1.7-9.3); NEUTROPHILS # (AUTO) 10.4 K/uL (1.8-7.7); NEUTROPHILS % (AUTO) 86.6 % (40.0-70.0); PLATELET COUNT (AUTO) 203 K/uL (130-430); RED CELL DISTRIBUTION WIDTH 14.5 % (9.0-15.0)
[2021-07-22 07:44] LABS: INR 0.9 (0.8-1.2)
[2021-07-22] MEDS: ALBUTEROL MDI INHALATION 8 GM INH INH SCH ×3 (07:45→19:44)
[2021-07-22 08:37] LABS: ALANINE AMINOTRANSFERASE 24 U/L (12-78); ALBUMIN 1.6 g/dL (3.4-4.8); ANION GAP 5 (5-15); ASPARTATE AMINOTRANSFERASE 22 U/L (10-37); CALCIUM 8.7 mg/dL (8.4-11.0); CHLORIDE 98 mmol/L (98-107); CREATININE 0.34 mg/dL (0.55-1.30); GLUCOSE 113 mg/dL (70-99); PHOSPHORUS 3.1 mg/dL (2.7-4.5); SODIUM SERUM 132 mmol/L (136-145); TOTAL BILIRUBIN 0.5 mg/dL (0.0-1.0); UREA NITROGEN, BLOOD 18 mg/dL (8-21)
[2021-07-22] MEDS: POTASSIUM CHLORIDE 10 MEQ TAB.PRT.SR PO SCH ×2 (09:00→20:45)
[2021-07-22] MEDS: DOCUSATE SODIUM 100 MG CAPSULE PO SCH ×2 (09:40→20:45)
[2021-07-22] MEDS: CITALOPRAM HYDROBROMIDE 20 MG TABLET PO SCH (09:40)
[2021-07-22] MEDS: ASCORBIC ACID 500 MG TABLET PO SCH ×2 (09:41→20:46)
[2021-07-22] MEDS: ASPIRIN 325 MG TABLET PO SCH (09:41)
[2021-07-22] MEDS: SIMVASTATIN 40 MG TABLET PO SCH (09:41)
[2021-07-22] MEDS: CHOLECALCIFEROL (VITAMIN D3) 2,000 UNIT TABLET PO SCH (09:42)
[2021-07-22] MEDS: PANTOPRAZOLE SODIUM 40 MG/VIAL (PROTONIX) IVP SCH (09:42)
[2021-07-22] MEDS: ENOXAPARIN SODIUM 40 MG/0.4 ML SYRINGE SUBCUT SCH ×2 (09:44→20:45)
[2021-07-22] MEDS: FUROSEMIDE 40 MG/4 ML VIAL IVP SCH (09:47)
[2021-07-22] MEDS: CELECOXIB 200 MG CAPSULE PO SCH ×2 (09:49→20:46)
--- NOTE | 2021-07-22 09:50 | NUR ---
RT NOTES Vent settings to PC 28 PEEP 10. Vt currently 412, pk pressure 38. H.R 84. Sat. 84-86. Will cont. to monitor pt. RN made aware
[2021-07-22 10:36] LABS: C-REACTIVE PROTEIN QUANT 12.6 mg/dL (0-0.5)
[2021-07-22 11:04] LABS: ERYTHROCYTE SEDIMENTATION RATE 53 MM/HR (0-20)
[2021-07-22] MEDS: ACETAMINOPHEN 325 MG TABLET PO PRN (13:06)
[2021-07-22] MEDS: MONTELUKAST 10 MG TABLET PO SCH (18:42)
[2021-07-22] MEDS: PROPOFOL DRIP 100 ML IV PRN (18:48)
[2021-07-22] MEDS: NOREPINEPHRINE BITARTRATE 4 MG in D5W 246 ML IV PRN (20:23)
--- NOTE | 2021-07-22 23:18 | NUR ---
rt notes vent settings changed to PRVC. per Dr. Santos order change to previous settings. PRVC 32 Tidal Volume 400 PEEP +14 FIO2 100%. RN Mari made aware. will continue to monitor.
[2021-07-22] MEDS: D5NS 1,000 ML IV SCH (23:48)
[2021-07-23] VITALS (15 sets, daily range): BP systolic 90–130
[2021-07-23] MEDS: ALBUTEROL MDI INHALATION 8 GM INH INH SCH ×2 (01:11→06:01)
[2021-07-23] MEDS: LEVOTHYROXINE SODIUM 0.1 MG TABLET PO SCH (05:38)
[2021-07-23] MEDS: DEXAMETHASONE SOD PHOSPHATE 10 MG/ML VIAL IVP SCH (05:38)
[2021-07-23] MEDS: SUCRALFATE 1 GM TABLET PO SCH (06:01)
[2021-07-23 07:02] LABS: BASOPHILS % (AUTO) 0.2 % (0.0-2.0); EOSINOPHILS # (AUTO) 0.4 K/uL (0.0-0.4); EOSINOPHILS % (AUTO) 2.3 % (0.0-4.0); HEMATOCRIT 33.1 % (36-48); HEMOGLOBIN 11.1 g/dL (12.0-16.0); LYMPHOCYTES # (AUTO) 1.3 K/uL (1.0-5.5); LYMPHOCYTES % (AUTO) 7.9 % (20.5-51.5); MEAN CORPUSCULAR HEMOGLOBIN 28 pg (27-31); MEAN CORPUSCULAR HGB CONC 33 % (32-36); MEAN CORPUSCULAR VOLUME 82 fL (79.0-98.0); MONOCYTES # (AUTO) 0.7 K/uL (0.0-1.0); NEUTROPHILS # (AUTO) 14.2 K/uL (1.8-7.7); NEUTROPHILS % (AUTO) 85.6 % (40.0-70.0); PLATELET COUNT (AUTO) 245 K/uL (130-430); RED BLOOD CELL COUNT(AUTO) 4.03 MIL/uL (4.2-6.2); RED CELL DISTRIBUTION WIDTH 14.7 % (9.0-15.0); WHITE BLOOD COUNT (AUTO) 16.6 K/uL (4.8-10.8)
--- NOTE | 2021-07-23 07:30 | NUR ---
Recv report fr Guerra rn, patient is in bed , remains on critical condition, daughter made patient modified code, no chest compression, pt is currently sedated with Propofol at 15 mcg, versed 2 mg, and morphine 2 mg, patient is comfortable, riding the vent rr @ 32, ng tube feeding vitals @ 30 ml/hr, tolerating, patient w/o bm, f/c only 100 ml, skin is warm to touch pulsels palpable, i will continue nursing care and interventions.
[2021-07-23] MEDS: CITALOPRAM HYDROBROMIDE 20 MG TABLET PO SCH (09:20)
[2021-07-23] MEDS: ASCORBIC ACID 500 MG TABLET PO SCH (09:21)
[2021-07-23] MEDS: PANTOPRAZOLE SODIUM 40 MG/VIAL (PROTONIX) IVP SCH (09:21)
[2021-07-23] MEDS: DOCUSATE SODIUM 100 MG CAPSULE PO SCH (09:22)
[2021-07-23] MEDS: SIMVASTATIN 40 MG TABLET PO SCH (09:22)
[2021-07-23] MEDS: CHOLECALCIFEROL (VITAMIN D3) 2,000 UNIT TABLET PO SCH (09:22)
[2021-07-23] MEDS: ASPIRIN 325 MG TABLET PO SCH (09:23)
[2021-07-23] MEDS: FUROSEMIDE 40 MG/4 ML VIAL IVP SCH (09:23)
[2021-07-23] MEDS: CELECOXIB 200 MG CAPSULE PO SCH (09:24)
[2021-07-23] MEDS: POTASSIUM CHLORIDE 10 MEQ TAB.PRT.SR PO SCH (09:37)
[2021-07-23] MEDS: ENOXAPARIN SODIUM 40 MG/0.4 ML SYRINGE SUBCUT SCH (09:37)
--- NOTE | 2021-07-23 10:00 | NUR ---
Check patients tube feeding residuals, i suctioned 240 ml of , turned off feeding, given usual daily meds, patient hr had slowed down to pulseless, immediately increased levophed as families wished just for vasopressors, patient hr and bp came back. i will closely monitor the patient.
--- NOTE | 2021-07-23 10:30 | NUR ---
Monique daughter and Elva came to see the patient, they made the patient full dnr, Monique spoke with Dr Santos, they mutually agreed to make patient comfort measure. i will continue to provide patient care, and comfort the family.
[2021-07-23 10:50] LABS: ALANINE AMINOTRANSFERASE 39 U/L (12-78); ALBUMIN 1.8 g/dL (3.4-4.8); ANION GAP 7 (5-15); ASPARTATE AMINOTRANSFERASE 32 U/L (10-37); CALCIUM 8.7 mg/dL (8.4-11.0); CHLORIDE 101 mmol/L (98-107); GLUCOSE 118 mg/dL (70-99); POTASSIUM 4.4 mmol/L (3.5-5.1); SODIUM SERUM 137 mmol/L (136-145); TOTAL BILIRUBIN 0.4 mg/dL (0.0-1.0); UREA NITROGEN, BLOOD 30 mg/dL (8-21)
--- NOTE | 2021-07-23 11:13 | NUR ---
Patient is asystole. daughters at bedside. will do post mortum care.
--- NOTE | 2021-07-23 11:17 | NUR ---
1055 TERMINALLY EXTUBATED PT AND PLACED ON 2L NC. PT 1113. FAMILY AT BEDSIDE. Addendum: 07/23/21 at 1118 by Ashley Pritchett RT Amended: Links added.
--- NOTE | 2021-07-23 11:28 | NUR ---
LLOYD MD PATIENT Kiran ALTMAN DIALED [phone] PERSON NOTIFIED TAIWO ROSS DIALED [phone] PERSON NOTIFIED MANUEL BARAHONA PERSON NOTIFIED
--- NOTE | 2021-07-23 12:24 | NUR ---
Called [facility] [phone] and exchange said they were closed for the holiday and to call back tomorrow.
== END 2021-07-23 11:13 | DRG 870 ==
LOC: SED 19:26 → SIC 23:13
PROVIDERS: ADMIT Preventive Medicine Preventive Medicine/Occupational Environmental Medicine; ATTEND Preventive Medicine Preventive Medicine/Occupational Environmental Medicine
PROC: XW033E5 Introduction of Remdesivir Anti-infective into Peripheral Vein, Percutaneous Approach, New Technology Group 5 (ICD-10-PCS; 2021-07-03)
PROC: 5A0935A Assistance with Respiratory Ventilation, Less than 24 Consecutive Hours, High Flow/Velocity Cannula (ICD-10-PCS; 2021-07-03)
PROC: 5A09457 Assistance with Respiratory Ventilation, 24-96 Consecutive Hours, Continuous Positive Airway Pressure (ICD-10-PCS; 2021-07-03)
PROC: 05HY33Z Insertion of Infusion Device into Upper Vein, Percutaneous Approach (ICD-10-PCS; 2021-07-04)
PROC: 5A0935A Assistance with Respiratory Ventilation, Less than 24 Consecutive Hours, High Flow/Velocity Cannula (ICD-10-PCS; 2021-07-05)
PROC: 5A0935A Assistance with Respiratory Ventilation, Less than 24 Consecutive Hours, High Flow/Velocity Cannula (ICD-10-PCS; 2021-07-06)
PROC: 5A09357 Assistance with Respiratory Ventilation, Less than 24 Consecutive Hours, Continuous Positive Airway Pressure (ICD-10-PCS; 2021-07-06)
PROC: 5A0935A Assistance with Respiratory Ventilation, Less than 24 Consecutive Hours, High Flow/Velocity Cannula (ICD-10-PCS; 2021-07-07)
PROC: 5A09357 Assistance with Respiratory Ventilation, Less than 24 Consecutive Hours, Continuous Positive Airway Pressure (ICD-10-PCS; 2021-07-07)
PROC: 5A09357 Assistance with Respiratory Ventilation, Less than 24 Consecutive Hours, Continuous Positive Airway Pressure (ICD-10-PCS; 2021-07-08)
PROC: 5A0955A Assistance with Respiratory Ventilation, Greater than 96 Consecutive Hours, High Flow/Velocity Cannula (ICD-10-PCS; 2021-07-08)
PROC: 0BH17EZ Insertion of Endotracheal Airway into Trachea, Via Natural or Artificial Opening (ICD-10-PCS; principal; 2021-07-17)
PROC: 5A1955Z Respiratory Ventilation, Greater than 96 Consecutive Hours (ICD-10-PCS; 2021-07-17)
PROC: 5A09357 Assistance with Respiratory Ventilation, Less than 24 Consecutive Hours, Continuous Positive Airway Pressure (ICD-10-PCS; 2021-07-17)
DX: A41.9 Sepsis, unspecified organism (principal); U07.1 COVID-19; J12.82 Pneumonia due to coronavirus disease 2019; J96.02 Acute respiratory failure with hypercapnia; J96.01 Acute respiratory failure with hypoxia; E43 Unspecified severe protein-calorie malnutrition; R65.21 Severe sepsis with septic shock; N17.9 Acute kidney failure, unspecified; E87.1 Hypo-osmolality and hyponatremia; J44.0 Chronic obstructive pulmonary disease with (acute) lower respiratory infection; N39.0 Urinary tract infection, site not specified; Z99.11 Dependence on respirator [ventilator] status; B96.1 Klebsiella pneumoniae [K. pneumoniae] as the cause of diseases classified elsewhere; K21.9 Gastro-esophageal reflux disease without esophagitis; G47.33 Obstructive sleep apnea (adult) (pediatric); K59.00 Constipation, unspecified; I10 Essential (primary) hypertension; E87.6 Hypokalemia; E83.51 Hypocalcemia; M19.90 Unspecified osteoarthritis, unspecified site; Z51.5 Encounter for palliative care; E78.5 Hyperlipidemia, unspecified; D64.9 Anemia, unspecified; J84.10 Pulmonary fibrosis, unspecified; I44.7 Left bundle-branch block, unspecified; D47.3 Essential (hemorrhagic) thrombocythemia; I46.9 Cardiac arrest, cause unspecified; E03.9 Hypothyroidism, unspecified; R73.9 Hyperglycemia, unspecified; R74.01 Elevation of levels of liver transaminase levels; Z85.42 Personal history of malignant neoplasm of other parts of uterus; Z90.710 Acquired absence of both cervix and uterus; Z88.6 Allergy status to analgesic agent; Z88.5 Allergy status to narcotic agent; Z88.8 Allergy status to other drugs, medicaments and biological substances; Z79.01 Long term (current) use of anticoagulants; Z68.27 Body mass index [BMI] 27.0-27.9, adult; Z79.899 Other long term (current) drug therapy; Z79.82 Long term (current) use of aspirin; Z66 Do not resuscitate
CPT/HCPCS: 36415; 36600; 71045; 74018; 80048; 80053; 81000; 82550; 82728; 82803-TC; 83605; 83615; 83735; 83880; 84100; 84484; 85025; 85379; 85384; 85610-TC; 85651-TC; 85730-TC; 86140; 86886; 86900; 86901; 87040-TC; 87070-TC; 87081; 87086; 87205-TC; 93005; 93306; 93970; 94002; 94003; 94640; 94660; 96365; 96375; 97110-GP; 97116-GP; 97163-GP; 97530-GP; 99285; C9113; J0456; J0696; J1100; J1650; J1940; J2060; J2270; J2543; J2704; J3490; J7050; J7060; U0003